=== PATIENT | female | born 1960 | race Caucasian/White ===

== ENCOUNTER 2016-11-23 12:06 | Inpatient (IN) | payer OTHER ==
[2016-11-23] VITALS (37 sets, daily range): BP systolic 73–126; BP diastolic 52–84; PULSE 66–130; RESP 4–27; TEMP 100; Ht 167.6 cm; Wt 141.4 kg
[~2016-11-23] VITALS: Ht 167.6 cm; Wt 141.4 kg
[~2016-11-23 12:06] MED LIST: CA CHLORIDE 10% 10 ML SYRINGE ONE; NA BICARBONATE 8.4% 50 ML SYG ONE
[2016-11-23] MEDS ORDERED: NORepinephrine 8MG/250 ML (PMX 250 ML ONE (12:22)
[2016-11-23] MEDS ORDERED: PROPOFOL 100 ML ONE (12:28)
[2016-11-23] MEDS ORDERED: CEFEPIME 2GM/50 ML (PMX) 50 ML IVPB STA (12:30)
[2016-11-23] MEDS ORDERED: SODIUM CHLORIDE 0.9% 1L BAG IV* STA (12:30)
[2016-11-23] MEDS ORDERED: VANCOMYCIN 1 GM (PMX) 250 ML IVPB ONE (12:30)
[2016-11-23 12:53] LABS: ADD SCAN DIFF NO
[2016-11-23 12:54] LABS: Allen Test ACCEPTAB; Arterial Base Excess 0.1 mmol/L (-3.0-3); Arterial Fraction of Oxyhgb 95.7 % (93.0-99.0); Arterial HCO3 28.8 mmol/L (22.0-26.0); Arterial MetHb 0.6 % (0.0-1.5); Arterial Total Hemglobin 17.5 g/dl (12.0-18.0); MODE VENT - AC
[2016-11-23] MEDS ORDERED: ARIP30TA10 PO (12:56)
[2016-11-23] MEDS ORDERED: ALBU2.5V3 NEB (12:57)
[2016-11-23] MEDS ORDERED: ASPI-664 PO (12:57)
[2016-11-23] MEDS ORDERED: BENZ1TAB7 PO (12:58)
[2016-11-23] MEDS ORDERED: DIVA-16 PO (12:58)
[2016-11-23 12:59] LABS: BASOPHIL # 0.1 10^3/ul (0.0-0.1); BASOPHILS % 0.8 % (0.0-2.0); HEMATOCRIT 50.6 % (37.0-47.0); HEMOGLOBIN 16.1 g/dl (12.0-16.0); LYMPHOCYTES # 2.2 10^3/ul (0.8-2.9); LYMPHOCYTES % 19.1 % (15.0-51.0); MEAN CORPUSCULAR HEMOGLOBIN 32.6 pg (29.0-33.0); MEAN CORPUSCULAR HGB CONC 31.8 g/dl (32.0-37.0); MEAN CORPUSCULAR VOLUME 102.4 fl (82.0-101.0); MEAN PLATELET VOLUME 10.7 fl (7.4-10.4); MONOCYTE # 0.6 10^3/ul (0.3-0.9); NEUTROPHIL # 8.4 10^3/ul (1.6-7.5); NEUTROPHILS % 71.8 % (39.0-77.0); NUCLEATED RED BLOOD CELLS # 1.3 10^3/ul (0.0-0.0); NUCLEATED RED BLOOD CELLS% 11.2 /100WBC (0.0-0.0); PLATELET COUNT 229 10^3/UL (140-415); RED BLOOD COUNT 4.94 10^6/ul (4.20-5.40); RED CELL DISTRIBUTION WIDTH 15.2 % (11.5-14.5); WHITE BLOOD COUNT 11.7 10^3/ul (4.8-10.8)
[2016-11-23] MEDS ORDERED: CRES10 PO (12:59)
[2016-11-23] MEDS ORDERED: PANT40TA3 PO (12:59)
[2016-11-23] MEDS ORDERED: MULTI PO (12:59)
[2016-11-23] MEDS ORDERED: TIOT18CA INHALATION (12:59)
[2016-11-23] MEDS ORDERED: SYMB80120 INHALATION (13:00)
[2016-11-23] MEDS ORDERED: RIVA20TA PO (13:00)
[2016-11-23] MEDS ORDERED: ZOLP5TAB6 PO (13:01)
[2016-11-23] MEDS ORDERED: IPRA3AMP INHALATION (13:01)
[2016-11-23] MEDS ORDERED: PRED50TA PO (13:02)
[2016-11-23] MEDS ORDERED: LORA1TAB PO (13:03)
[2016-11-23 13:08] LABS: ALBUMIN 3.3 g/dl (3.3-4.9); INR 1.17; PARTIAL THROMBOPLASTIN TIME 26.5 Sec (25.0-35.0); POTASSIUM 3.7 mmol/L (3.5-5.1); PT RATIO 1.2
--- NOTE | 2016-11-23 13:09 | RADRPT ---
PROCEDURE: XR Chest. CLINICAL INDICATION: Status post intubation TECHNIQUE: Single portable view of the chest was obtained COMPARISON: None FINDINGS: There is a new endotracheal tube 3.2 cm above the ciara. There is a nasogastric tube extending below the diaphragm. There is mild cardiomegaly with pulmonary vascular congestion. There are bilateral perihilar and lo wer lobe infiltrates. There is no pleural effusion or pneumothorax. RPTAT: AA IMPRESSION: New endotracheal tube in appropriate position. Nasogastric tube extending below the diaphragm. Mild cardiomegaly with pulmonary vascular congestion. .Fran Tam MD, MD Date Time Electronically viewed and signed by .Fran Tam MD, on 11/23/2016 13:09 .S/
[2016-11-23 13:11] LABS: ALBUMIN/GLOBULIN RATIO 1.03; BILIRUBIN,INDIRECT 0.4 mg/dl (0-1.1); BILIRUBIN,TOTAL 0.4 mg/dl (0.2-1.3); CALCIUM 10.2 mg/dl (8.4-10.2); CREATININE 1.1 mg/dl (0.44-1.00); TOTAL PROTEIN 6.5 g/dl (6.1-8.1)
[2016-11-23 13:23] LABS: TROPONIN-I 0.259 ng/ml (0.00-0.12)
[2016-11-23 13:26] LABS: ADD UMIC YES; URINE BILIRUBIN (Dip) 1+ (NEGATIVE); URINE BLOOD (Dip) 1+ (NEGATIVE); URINE COLOR YELLOW (YELLOW); URINE KETONES (Dip) 40 (NEGATIVE); URINE LEUKOCYTE ESTERASE (Dip) NEGATIVE (NEGATIVE); URINE NITRITE (Dip) NEGATIVE (NEGATIVE); URINE TOTAL PROTEIN (Dip) 2+ (NEGATIVE); URINE UROBILINOGEN (Dip) 0.2 E.U./dL (0.1-1.0)
[2016-11-23] MEDS ORDERED: PROPOFOL 100 ML IV STA (13:33)
[2016-11-23] MEDS ORDERED: NORepinephrine 8MG/250 ML (PMX 250 ML IV STA (13:33)
[2016-11-23 13:52] LABS: BACTERIA,URINE MODERATE; ICTOTEST NEGATIVE (NEGATIVE); URINE RBCS 25-50 /HPF (0)
[2016-11-23] MEDS ORDERED: ACETAMINOPHEN 650 MG SUPP PR PRN (14:30)
[2016-11-23] MEDS ORDERED: GLUCAGON 1 MG INJ IM PRN (14:30)
[2016-11-23] MEDS ORDERED: GLUCOSE GEL 15 GRAM TUBE BUCCAL PRN (14:30)
[2016-11-23] MEDS ORDERED: DEXTROSE 50% 50 ML SYRINGE IV PRN ×2 (14:30)
[2016-11-23] MEDS ORDERED: Discontinue Glyburide, Glipizide, and/or Glimepiride prior to starting Insulin XX ONE (14:30)
[2016-11-23] MEDS ORDERED: MAGNESIUM HYDROXIDE 30ML CUP PO PRN (14:30)
[2016-11-23] MEDS ORDERED: IPRATROPIUM (HFA) 12.9 GM INHALER INH PRN (14:30)
[2016-11-23] MEDS ORDERED: morphine 2 MG INJ IV PRN (14:30)
[2016-11-23] MEDS ORDERED: ONDANSETRON 4 MG INJ IV PRN (14:30)
[2016-11-23] MEDS ORDERED: DOCUSATE SODIUM 100 MG CAP PO PRN (14:30)
[2016-11-23] MEDS ORDERED: ALBUTEROL HFA 8 GM INHALER INH PRN (14:30)
[2016-11-23] MEDS ORDERED: MIDAZOLAM (DRIP) 50 mg/50 mL 50 ML IV SCH (14:30)
[2016-11-23] MEDS ORDERED: GLUCOSE GEL 15 GRAM TUBE PO PRN ×2 (14:30)
[2016-11-23] MEDS ORDERED: ASPIRIN 600 MG SUPP PR ONE (14:30)
[2016-11-23] MEDS ORDERED: ACETAMINOPHEN 650MG/20.3ML CUP PO PRN (14:30)
[2016-11-23] MEDS ORDERED: NITROGLYCERIN (SL) 0.4 MG TAB SL PRN (14:30)
[2016-11-23] MEDS ORDERED: HYPOGLYCEMIA PROTOCOL when Glucose is <70 mg/dL or symptomatic <90 mg/dL. XX ONE (14:30)
[2016-11-23] MEDS ORDERED: NORepinephrine 8MG/250 ML (PMX 250 ML IV SCH (14:30)
[2016-11-23] MEDS ORDERED: BISACODYL 10 MG SUPP PR PRN (14:30)
[2016-11-23 14:43] LABS: ACETAMINOPHEN < 10.0 ug/ml (10.0-30.0); D-DIMER 467.98 ng/ml (<460); ETHANOL < 10.0 mg/dl; SALICYLATE < 1.0 mg/dl (5.0-30.0)
--- NOTE | 2016-11-23 15:12 | RADRPT ---
PROCEDURE: CT brain without contrast CLINICAL INDICATION: Sepsis TECHNIQUE: CT of the brain without contrast was performed on a multidetector CT scanner, with multi planar reformats. One or more of the following dose reduction techniques were used: Automated expos ure control, adjustment in mA and / or kV according to patient size, use of iterative reconstructive technique. CTDIvol = 40 mGy; DLP = 634 mGy-cm. COMPARISON: None available FINDINGS: No acute intracranial hemorrhage is identified. No extra-axial fluid collection is seen. There is no mass effect. No midline shift is identified. Ventricles and sulci are within normal limits for size and configuration. There are mild areas of hypodensity in the periventricular - deep white matter, nonspecific but like ly reflecting chronic small vessel ischemic changes. Perdue-white differentiation is preserved. Athe rosclerotic calcifications are seen in the intracranial internal carotid arteries. The sella is par tly empty. Osseous structures are unremarkable. There is partial bilateral mastoid air cell opacification, mil d bilateral maxillary, left frontal, right sphenoid and mild-moderate bilateral ethmoid sinus mucosa l thickening.. IMPRESSION: 1. No evidence of acute intracranial pathology. 2. Mild chronic small vessel ischemic changes. 3. Partly empty sella. 4. Bilateral mastoid and paranasal sinus disease described above. RPTAT: VV .Ministerio Lindsay MD, Date Time Electronically viewed and signed by .Ministerio Lindsay MD, on 11/23/2016 15:08 .O/
[2016-11-23] MEDS: THIAMINE 100 MG in SOD CHLORIDE 0.9% 100 ML IVPB STA ×2 (15:30→17:38)
[2016-11-23] MEDS ORDERED: FENTAnyl (DRIP) 1000 mcg/100mL 100 ML IV SCH (16:00)
[2016-11-23] MEDS ORDERED: PROPOFOL 100 ML IV SCH (16:00)
--- NOTE | 2016-11-23 16:27 | CONS ---
DATE OF ADMISSION: 11/23/2016 DATE OF CONSULTATION: 11/23/2016 TYPE OF CONSULTATION: Pulmonary. Thank you, Dr. Davila, for this consultation. REASON FOR CONSULTATION: Respiratory failure. HISTORY OF PRESENT ILLNESS: This is a 56-year-old lady with multiple medical problems admitted from home, altered mental status, unresponsive, pulseless requiring CPR 15 minutes for PEA and then intu bation, mechanical ventilation. Upon intubation the patient opened eyes and appeared more responsive ; therefore hypothymia protocol was not initiated. Few further details are available. PAST MEDICAL HISTORY: Includes schizoaffective disorder, probable obstructive sleep apnea and probab le COPD, history of coronary artery disease, history of atrial fibrillation. MEDICATIONS: Per chart. ALLERGIES: VICODIN. SOCIAL HISTORY: Alcohol and tobacco history unknown. REVIEW SYSTEMS REVIEW: A 12-point review of systems currently unable to perform. PHYSICAL EXAMINATION: GENERAL: Morbidly obese lady, intubated on mechanical ventilation. Grimaces to painful stimuli. VITAL SIGNS: Temperature 100, pulse is 78, blood pressure 95/40 on vasopressors. NECK: Short. No lymphadenopathy. CARDIAC: S1, S2, 2/6 systolic ejection murmur. CHEST: Diminished air entry bilaterally. ABDOMEN: Obese, soft, nontender, no guarding, no rebound. EXTREMITIES: No cyanosis, clubbing, 1+ edema. NEUROLOGIC: Generalized weakness. LABORATORY DATA: White count 11.7, hemoglobin 16.1, platelets of 229. BUN 16, creatinine 1.1, gluc ose was 361. Lactic acid 10.6, INR 1.17. Initial ABG: pH 7.28, pCO2 of 62, PaO2 of 368 with a bic arbonate of 28. DIAGNOSTIC DATA: Chest x-ray was reviewed, shows congestive cardiac failure. CT of the head shows no acute abnormalities. IMPRESSION AND PLAN: 1. Acute hypoxemic and hypercapnic respiratory failure, possibly secondary to congestive cardiac fa ilure plus or minus pneumonia and/or aspiration. 2. Underlying obstructive sleep apnea. 3. Underlying chronic hypercapnia. 4. Schizoaffective disorder. 5. Incomplete data. The patient will need: 1. Continued mechanical ventilation. 2. Broad-spectrum antibiotics. 3. Cardiology evaluation with echocardiogram. 4. Vasopressor support. 5. Broad-spectrum antibiotics. 6. Deep vein thrombosis and GI prophylaxis. 7. Obtain old data. Dictated By: ROCKY VALDIVIA MD SV/ISMAEL Conf#: [id number] DID#: [id number]
--- NOTE | 2016-11-23 16:43 | RADRPT ---
Echocardiogram Report Patient Name: BHUPINDER LA Gender: Female Date: 1960 Study Date: 23-Nov-2016 [employer]: Charli Samaniego DANAE Location: [facility] Ref. Physician: RENATO MORENO Quality: Technically Difficult Study Procedures: Transthoracic echocardiogram with complete 2D, M-Mode, and doppler examination. Indications: s/p PEA arrest. 2D/M Mode Doppler Measurement Value Normal Ranges Measurement Value Normal Ranges LVIDd 2D 4.8 3.5 - 5.6 cm AV Peak Armond 1.8 m/sec LVIDs 2D 2.9 2.1 - 4.1 cm AV Peak PG 13.0 mmHg FS 2D 39.6 % LVOT Peak Armond 1.0 m/sec LVPWd 2D 1.0 0.6 - 1.1 cm LVOT Peak PG 4.0 mmHg IVSd 2D 1.2 0.6 - 1.1 cm IVS/LVPW 2D 1.1 AoR Diam 2D 3.2 2.0 - 3.7 cm LA/Ao 2D 1 0 - 1 EDV 2D 112.0 cm3 ESV 2D 24.6 cm3 LA Dimen 2D 3.5 2.3 - 4.0 cm Findings Left Ventricle: Overall, normal left ventricular systolic function. Not all segments visualized. Normal left ventricular cavity size. Mild concentric left ventricular hypertrophy. Ejection fraction is visually estimated at 60 %. Abnormal Diastolic Function. Right Ventricle: Normal right ventricular size. Normal right ventricular systolic function. Left Atrium: The left atrium is normal in size. Right Atrium: The right atrium is normal in size. Mitral Valve: Mitral valve is not well visualized. Trace mitral regurgitation. Aortic Valve: No significant aortic stenosis or insufficiency. Aortic valve not well visualized. Tricuspid Valve: Tricuspid valve not well visualized. There is trace tricuspid regurgitation. Pulmonic Valve: Pulmonic valve not well visualized. Pericardium: Normal pericardium with no significant pericardial effusion. Aorta: Normal aortic root. IVC: Dilated inferior vena cava without respiratory collapse, however, patient on ventilator. Conclusions Overall, normal left ventricular systolic function. Not all segments visualized. Normal left ventricular cavity size. Mild concentric left ventricular hypertrophy. Ejection fraction is visually estimated at 60 %. Abnormal Diastolic Function. Normal right ventricular size. Normal right ventricular systolic function. The left atrium is normal in size. The right atrium is normal in size. No significant valvular stenosis or regurgitation seen. Normal pericardium with no significant pericardial effusion. Electronically Signed By: Lito Feldman 23-Nov-2016 16:42:36 -0800 Patient Name: BHUPINDER LA Study Date: 23-Nov-[id number]
--- NOTE | 2016-11-23 16:55 | HP ---
DATE OF ADMISSION: 11/23/2016 PRIMARY CARE PHYSICIAN: Unknown. CHIEF COMPLAINT ON ADMISSION: The patient was found down in cardiac arrest. HISTORY OF PRESENT ILLNESS: This is a 56-year-old female with a history of alcohol abuse, schizoaff ective disorder, asthma, likely severe and probably obstructive sleep apnea with super morbid obesit y, who was brought in to the emergency department by EMS from a local board and care where she was f ound down. The history is obtained from the ER physician as the patient is currently intubated and sedated. Patient apparently was found in PEA arrest by EMS. Resuscitation was started. She was bro ught over to [facility] and was actually a very difficult intubation, according to the emergency department physician. She was also resuscitated with multiple doses of epinephrine a nd CPR. They finally got a pulse after the third dose of epinephrine and started on Levophed for pr essor. A central line was placed and she was started on additional IV antibiotics and placed on mech anical ventilation. Her laboratory data is showing a sodium of 121, a lactate up to 10 and troponin of 0.259. Not much history is available. Some records from outside hospital were obtained. The kana ent does have a history of alcohol use and also coronary artery disease and atrial fibrillation as a n outpatient. She is currently more or less more stable on pressors along with sedation and being o n mechanical ventilation. Pulmonary consult was placed with Dr. Schreiber, cardiology consult with Dr. Feldman. PAST MEDICAL HISTORY: 1. Schizoaffective disorder. 2. Asthma, severe, for which apparently the patient is on chronic prednisone. 3. Coronary artery disease. 4. Atrial fibrillation. 5. Likely obstructive sleep apnea. 6. Alcohol use. ASSESSMENT AND PLAN: This is a 56-year-old female with, according to her records, history of schizo affective disorder, asthma versus COPD, coronary artery disease, atrial fibrillation, possible diabe abdiel mellitus and super morbid obesity who apparently resides at a boarding care, was found down toda y at the boarding care. The history is obtained from the emergency department physician and also fr EMS documentation as the patient is currently intubated and sedated. According to the emergency department physician, the patient was found outside of the boarding care. She was found down unresp onsive. She was found in PEA arrest. Resuscitation efforts were started. She was brought over by EMS to the emergency department. She was a very difficult intubation and they had to perform CPR fo r approximately 15 to 20 minutes before the patient was resuscitated and maintaining a pulse. She w as started on Levophed after the third epinephrine was given. By then, she was intubated by Dr. Ashlee preciado from the emergency department and placed on the ventilator. Left femoral central line was randall ignacia at that time. She was started on Levophed along with propofol afterwards when she started getti ng agitated. LABORATORY DATA: Did show an elevated lactate of 10, sodium of 121 and a slightly elevated troponin . She was given boluses of IV fluids as part of resuscitation, along with IV antibiotics. An OG-tu be was placed, she does have some dark output from the OG tube. She is currently to be switched to Versed drip and is maintaining a pulse and vital signs are more or less stable on the Levophed drip. CAT scan of the brain is within normal limits. Given her previous history of cardiac disease, echoc ardiogram has been ordered along with a cardiology consult with Dr. Feldman. Also, Dr. Schreiber has bee n consulted for the pulmonary and vent management. ALLERGIES: ALLERGY TO 1. ACETAMINOPHEN. 2. HYDROCODONE. 3. SULFAMETHOXAZOLE. 4. TRIMETHOPRIM. PAST MEDICAL HISTORY: Significant for: 1. Asthma versus chronic obstructive pulmonary disease. 2. Likely obstructive sleep apnea. 3. Super morbid obesity. 4. Coronary artery disease. 5. Atrial fibrillation. 6. Schizoaffective disorder. PAST SURGICAL HISTORY: Unknown. REVIEW OF SYSTEMS: Unable to obtain. SOCIAL HISTORY: [facility] She is legally blind. Apparently she uses a walker but needs to be escorted. No reported tobacco, alcohol or illicit drug use. OUTPATIENT MEDICATIONS: 1. Albuterol nebulizer every 6 hours as needed for wheezing or shortness of breath. 2. Duonebs every 4 hours as needed for COPD. 3. Spiriva 18 mcg inhaled daily. 4. Xarelto 20 mg p.o. with dinner. 5. Crestor 10 mg p.o. at bedtime. 6. Abilify 30 mg p.o. daily. 7. Aspirin 81 mg p.o. daily. 8. Benztropine 1 mg p.o. b.i.d. 9. Divalproex sodium 1500 mg p.o. at bedtime. 10. Lorazepam 1 mg p.o. every 4 hours p.r.n. anxiety. 11. Ambien 5 mg p.o. at bedtime. 12. Symbicort 80/4.5 two puffs inhaled b.i.d. 13. Protonix 40 mg p.o. daily. 14. Prednisone 50 mg p.o. daily. 15. Multivitamin 1 tab p.o. daily. PHYSICAL EXAMINATION: VITAL SIGNS: Temperature of 100, T-max was 101, heart rate of 78, sinus rhythm, respiratory rate of 20, blood pressure 102/71, the patient is saturating 100% on the ventilator currently with a respir atory rate of 19 to 20%. The vent settings are a tidal volume of 500, PEEP of 5, FiO2 of 100% and re spiratory rate of 20. GENERAL: She is sedated and intubated currently, super morbidly obese and seems to be comfortable, minimally responsive. HEENT: The patient is noted to have a short neck. She has an ET tube in place along with an OG tub e with coffee ground output. Additional exam is fairly limited. LUNGS: Decreased breath sounds bilaterally, very difficult exam, however. ABDOMEN: Slightly distended, mostly obese, decreased bowel sounds. EXTREMITIES: No edema, clubbing or cyanosis, but it is noted that the sole of her feet are cracked and dirty. NEUROLOGIC: She is sedated and intubated. LABORATORY DATA: White blood cell count is 11.7, hemoglobin 16.1, hematocrit 50.1, MCV of 102.4, pl atelet count of 229. Chemistry with a sodium of 121, potassium 3.7, chloride of 89, bicarbonate of 27, BUN 16, creatinine 1.10, glucose of 361. Lactic acid 10.6, total bilirubin 0.4, AST 46, ALT 33, alkaline phosphatase of 48, troponin 0.259, total protein 6.5, albumin 3.3, lipase 56. TSH 3.040, a free T4 of 0.72, INR is 1.17. PT of 15.0. D-dimer 467 and 98. Urinalysis with moderate bacteria , negative nitrites, negative leukocyte esterase. Tox screen is negative. Post resuscitation patient is now in sinus rhythm with premature supraventricular complexes, on arri willy she was in PEA cardiac arrest. RADIOLOGICAL DATA: 1. Chest x-ray post-intubation shows an ET tube in appropriate position, OG tube in place, mild car diomegaly with pulmonary vascular congestion. 2. CAT scan of the brain without contrast showing no evidence of acute intracranial pathology, mild chronic small vessel ischemic changes. Partly empty sella bilateral mastoid and paranasal sinus di sease as described. ASSESSMENT AND PLAN: This is a 56-year-old female with: 1. Pulseless electrical activity cardiac arrest, likely secondary to respiratory failure. It is un clear at this time. The patient also has a cardiac history. Therefore, she will have her cardiac e nzymes trended, 2-D echocardiogram has been ordered. Cardiology consult with Dr. Feldman. Pulmonary consult with Dr. Saldivar. The patient is on mechanical ventilation currently. D-dimer is slightly elevated. I will order Dopplers of the lower extremity to rule out a DVT. Per records, the patien t was on Xarelto as an outpatient, given her history of atrial fibrillation; however, she seems to b e in sinus rhythm since resuscitation. Prognosis is guarded. 2. Acute respiratory failure, unclear primary etiology of it. She has a history of COPD versus asth ma and likely obstructive sleep apnea. Currently, she is on mechanical vent support. We will follo w up pulmonary recommendations, likely we are going to have to put her on steroids, since she is chr onically on it as an outpatient. Doppler of the lower extremity and further evaluation per pulmonary . 3. Super morbid obesity. 4. Schizoaffective disorder. For now she is nonresponsive. She is going to be on a Versed drip fo r sedation. Would plan to resume her psychiatric medications once she is off sedation. 4. Coffee ground output from the NG tube, possible upper gastrointestinal bleed. Continue proton p ump inhibitors. Will increase to b.i.d. 5. Acute kidney injury in setting of PEA cardiac arrest. We will monitor her urine output closely. She was already given IV fluids for resuscitation, based on her ejection fraction we may increase or decrease the amount of IV which she is getting better. Monitor renal function for now. 6. Likely aspiration pneumonia. We will continue antibiotics, Zosyn for now. 7. Prophylaxis. Heparin subacute for deep venous thrombosis prophylaxis, unless the patient starte d having upper GI bleeding and Pepcid b.i.d. for now. DISPOSITION: The patient has been admitted to the intensive care unit with pulmonary and cardiology to follow. Her prognosis is guarded. Dictated By: JERRI MANCILLA/ISMAEL Conf#: [id number] DID#: [id number]
[2016-11-23] MEDS: PIPER-TAZO 3.375 GM IV (PMX) 100 ML IVPB SCH ×2 (17:20→20:47)
[2016-11-23] MEDS: SOD CHLORIDE 0.9% 1,000 ML IV SCH (17:20)
[2016-11-23] MEDS: MIDAZOLAM (DRIP) 50 mg/50 mL 50 ML IV SCH ×2 (17:25→23:35)
[2016-11-23] MEDS: PANTOPRAZOLE 40 MG INJ IV SCH (17:32)
[2016-11-23] MEDS: INSULIN ASPART [NOVOLOG] 3 ML PEN SC SCH ×2 (17:35→22:28)
[2016-11-23] MEDS: ALBUTEROL HFA 8 GM INHALER INH SCH ×2 (18:05→21:50)
[2016-11-23] MEDS: IPRATROPIUM (HFA) 12.9 GM INHALER INH SCH ×2 (18:06→21:50)
[2016-11-23] MEDS: NORepinephrine 8MG/250 ML (PMX 250 ML IV SCH ×2 (18:57→23:32)
[2016-11-23 19:45] LABS: CK-MB 2.81 ng/ml (0.0-2.4); TROPONIN-I 0.272 ng/ml (0.00-0.12)
--- NOTE | 2016-11-23 20:50 | ERA ---
ER Documentation Chief Complaint Date/Time DATE: 11/23/16 TIME: 20:32 Chief Complaint HPI This is a 56-year-old female with a history of alcohol abuse, schizoaffective disorder, asthma, obstructive sleep apnea with morbid obesity, who was brought in to the emergency department by EMS from a local [facility]. EMS indicated that they received a call from the [facility] as the patient was lying outside on the sidewalk in severe respiratory distress. When EMS arrived they indicated they stated that the patient was diaphoretic, experienced and agonal respirations and unresponsive. The patient was in pulseless electrical activity and they immediately began CPR. They were unable to establish IV access therefore no medications were given. No further history is available. All further history with respect to the patient's past medical history was obtained from previous medical records and a medication list that was given to EMS from the [facility]. EMS stated there was no signs of trauma or drug paraphernalia. ROS All systems reviewed and are negative except as per history of present illness. Medications Home Meds Reported Medications Lorazepam* (Lorazepam*) 1 Mg Tablet, 1 MG PO Q4 Y for ANXIETY, #60 TAB 11/23/16 Prednisone* (Prednisone*) 50 Mg Tablet, 50 MG PO DAILY, TAB 11/23/16 Zolpidem Tartrate* (Zolpidem Tartrate*) 5 Mg Tablet, 5 MG PO QHS Y for INSOMNIA , #30 TAB 11/23/16 Ipratropium-Albuterol (Ipratropium-Albuterol) 0.5-3 Mg/3 Ml Ampul.neb, 3 ML INHALATION Q4 Y for COPD, #30 VIAL 11/23/16 Rivaroxaban* (Xarelto*) 20 Mg Tablet, 20 MG PO WITH DINNER, TAB 11/23/16 Budesonide-Formoterol Fumarate* (Symbicort*) 80-4.5 Inha, 2 PUFFS INHALATION BID , #1 EACH 11/23/16 Tiotropium [place]* (Spiriva*) 18 Mcg Cap.w.dev, 1 CAP INHALATION DAILY, #30 CAP 11/23/16 Rosuvastatin Calcium* (Crestor*) 10 Mg Tablet, 10 MG PO QHS, #30 TAB 11/23/16 Pantoprazole* (Protonix*) 40 Mg Tablet.dr, 40 MG PO DAILY, TAB 11/23/16 Multivitamins* (Theragran*) 1 Tab Tab, 1 TAB PO DAILY, TAB 11/23/16 Divalproex Sodium* (Divalproex Sodium*) 500 Mg Tablet.dr, 1500 MG PO QHS, #120 TAB 11/23/16 Benztropine Mesylate* (Benztropine Mesylate*) 1 Mg Tablet, 1 MG PO BID, TAB 11/23/16 Aspirin (Low Dose Aspirin) 81 Mg Tablet.dr, 81 MG PO DAILY, #30 TAB 11/23/16 Albuterol Sulfate* (Albuterol Sulfate* Neb) 0.083%-3 Ml Neb, 2.5 MG NEB Q6 Y for WHEEZING AND SOB, #30 VIAL 11/23/16 Aripiprazole* (Abilify*) 30 Mg Tablet, 30 MG PO DAILY, #30 TAB 11/23/16 Allergies Allergies: Coded Allergies: acetaminophen (Verified Allergy, Unknown, 11/23/16) hydrocodone (Verified Allergy, Unknown, 11/23/16) sulfamethoxazole (Verified Allergy, Unknown, 11/23/16) trimethoprim (Verified Allergy, Unknown, 11/23/16) PMhx/Soc Medical and Surgical Hx: Unable to obtain Hx Psychiatric Problems: Yes (ON PSYCH MEDS PER E.R RN REPORT) Hx Alcohol Use: Yes (ETOH IN THE PAST PER MD. ) Smoking Status: Unknown if ever smoked Physical Exam Vitals Vital Signs Date Time Temp Pulse Resp B/P Pulse Ox O2 Delivery O2 Flow Rate FiO2 11/23/16 13:30 97 20 66/52 100 Mechanical Ventilator 11/23/16 13:00 116 20 100 11/23/16 12:55 101.0 120 20 99/59 100 Mechanical Ventilator 11/23/16 12:40 124 20 158/78 99 Mechanical Ventilator 11/23/16 12:40 Bag Valve Mask 11/23/16 12:34 125 20 136/75 100 Mechanical Ventilator 11/23/16 12:22 174 20 52/38 100 Mechanical Ventilator 11/23/16 12:10 136 20 100 100 11/23/16 12:06 98.1 0 20 52/38 100 Physical Exam Constitutional:Well-developed. Disheveled. In severe respiratory distress. HEENT:Normocephalic. Atraumatic.Pupils were equal round reactive to light. No tonsillar exudates. No blood present within the oropharynx and no gastric contents within the oropharynx. No angioedema. Macroglossia Neck: No nuchal rigidity. No lymphadenopathy. No posterior cervical spine tenderness or step-offs. Respiratory: No spontaneous ventilatory effort Cardiovascular: Regular rate regular rhythm.No murmurs. No rubs were appreciated.S1, S2 normal. Distal pulses were not palpable due to morbid obesity however on Doppler dorsalis pedis and posterior tibialis were present GI: Abdomen was soft. Nontender. Non Distended. No pulsatile abdominal masses or bruits. No rebound. No guarding. Bowel sounds were present and normal. Muscle skeletal: Patient had no movement of the upper or lower extremities bilaterally. Skin: Cool to the touch. Cyanotic. No petechia, no purpura. No lesions on the palms or the soles of the feet. No maculopapular rash. Macula on an erythematous base present underneath the left breast. NEURO: Patient was unresponsive. No gag reflex. GCS 3 Result Diagram: 11/23/16 1230 11/23/16 1230 Results 24 hrs Laboratory Tests Test 11/23/16 12:13 11/23/16 12:30 11/23/16 12:40 11/23/16 13:30 Bedside Glucose 300mg/dL Activated Partial Thromboplast Time 26.5Sec Alanine Aminotransferase (ALT/SGPT) 33IU/L Albumin 3.3g/dl Albumin/Globulin Ratio 1.03 Alkaline Phosphatase 48IU/L Amylase Level 50U/L Anion Gap 24 Aspartate Amino Transf (AST/SGOT) 46IU/L Basophils # 0.110^3/ul Basophils % 0.8% Blood Urea Nitrogen 16mg/dl Calcium Level 10.2mg/dl Carbon Dioxide Level 27mmol/L Chloride Level 89mmol/L Creatinine 1.10mg/dl Direct Bilirubin 0.00mg/dl Eosinophils # 0.010^3/ul Eosinophils % 0.0% Globulin 3.20g/dl Glucose Level 361mg/dl Hematocrit 50.6% Hemoglobin 16.1g/dl INR International Normalized Ratio 1.17 Indirect Bilirubin 0.4mg/dl Lactic Acid Level 10.6mmol/L Lipase 56U/L Lymphocytes # 2.210^3/ul Lymphocytes % 19.1% Mean Corpuscular Hemoglobin 32.6pg Mean Corpuscular Hemoglobin Concent 31.8g/dl Mean Corpuscular Volume 102.4fl Mean Platelet Volume 10.7fl Monocytes # 0.610^3/ul Monocytes % 5.0% Neutrophils # 8.410^3/ul Neutrophils % 71.8% Nucleated Red Blood Cells # 1.310^3/ul Nucleated Red Blood Cells % 11.2/100WBC Platelet Count 08213^3/UL Potassium Level 3.7mmol/L Prothrombin Time 15.0Sec Prothrombin Time Ratio 1.2 Red Blood Count 4.9410^6/ul Red Cell Distribution Width 15.2% Sodium Level 136mmol/L Total Bilirubin 0.4mg/dl Total Protein 6.5g/dl Troponin I 0.259ng/ml Urine Amorphous Urates MODERATE Urine Bacteria MODERATE Urine Bilirubin 1+ Urine Clarity SLIGHTLY CLOUDY Urine Color YELLOW Urine Epithelial Cells FEW Urine Glucose 0.5%% Urine Hemoglobin 1+ Urine Ictotest NEGATIVE Urine Ketones 40 Urine Leukocyte Esterase NEGATIVE Urine Microscopic RBC 25-50/HPF Urine Microscopic WBC 5-10/HPF Urine Nitrite NEGATIVE Urine Specific [place] 1.025 Urine Total Protein 2+ Urine Urobilinogen 0.2 E.U./dL Urine Yeast RARE Urine pH 6.0 White Blood Count 11.710^3/ul Arterial Blood HCO3 28.8mmol/L Arterial Blood Base Excess 0.1mmol/L Arterial Blood Oxygen Saturation 99.3mmHG Yakov Test ACCEPTAB Arterial Blood Gas Puncture Site Right Radial Arterial Blood Carboxyhemoglobin 3.0% Arterial Blood Date Drawn 11/23/2016 12:45:38 PM Arterial Blood Methemoglobin 0.6% Arterial Blood pCO2 (Temp correct) 62.3mmhg Arterial Blood pH (Temp corrected) 7.283 Arterial Blood pO2 (Temp corrected) 368.7mmHG Blood Gas A-a O2 Differential 282.0mmHg Blood Gas Actual Respiration Rate 20 Blood Gas Critical Value Read Back DR. Ryder TORRES Blood Gas Inspiratory Pressure 40.0 Blood Gas Low PEEP Setting 5.0cmH2O Blood Gas Modality VENT - AC Blood Gas Notified Time 11/23/2016 12:53:56 PM Blood Gas Notified Whom CHRIS MCFARLANE Blood Gas Respiration Rate 16.0 Blood Gas Specimen Source Blood arterial Blood Gas Temperature 37.0C Blood Gas Tidal Volume 500.0mL FiO2 100.0% Oxyhemoglobin Percent 95.7% Total Hemoglobin 17.5g/dl Acetaminophen Level < 10.0ug/ml D-Dimer 467.98ng/ml D-Dimer Comment Ethyl Alcohol Level < 10.0mg/dl Free Thyroxine 0.72ng/dl Salicylates Level < 1.0mg/dl Thyroid Stimulating Hormone (TSH) 3.040MIU/L Current Medications Medications (Trade) Dose Ordered Sig/Bryson Route PRN Reason Start Time Stop Time Status Last Admin Dose Admin Propofol (Diprivan) 100 ml @ ud STK-MED ONCE .ROUTE 11/23/16 12:28 11/23/16 12:29 DC Sodium Chloride 3100 ml 3,100 ml BOLUS OVER 2 HOURS STAT IV* 11/23/16 12:30 11/23/16 12:33 DC 11/23/16 13:42 Cefepime HCl 50 ml @ 100 mls/hr ONCE STAT IVPB 11/23/16 12:30 11/23/16 12:59 DC 11/23/16 13:46 Vancomycin HCl 250 ml @ 125 mls/hr ONCE ONCE IVPB 11/23/16 12:30 11/23/16 14:29 DC 11/23/16 14:41 Norepinephrine 250 ml @ 7.5 mls/hr ONCE STAT IV 11/23/16 13:33 11/23/16 15:20 DC 11/23/16 13:41 Propofol 100 ml @ 3.3 mls/hr ONCE STAT IV 11/23/16 13:33 11/23/16 15:20 DC 11/23/16 13:40 Norepinephrine (Levophed) 250 ml @ ud STK-MED ONCE .ROUTE 11/23/16 12:22 11/23/16 16:33 DC Procedures/MDM The patient presented to the emergency department with an acute and persistent change in their mental status. The differential diagnosis is diverse however reversible causes such as hypoglycemia, opiate overdose, thiamine deficiency were immediately considered. The patient was placed on a personnel monitor, continuous pulse oximetry and IV access was established. The patients airway was not secure therefore hypoxic events such as anemia, shock, or severe pulmonary disease were all considered as etiologies in this patients presentation. Finger stick for rapid glucose determined to be elevated at 300 and the patient was not hypothermic or hyperthermic. ACLS protocol was obtained. The patient arrived into the emergency department with pulseless electrical activity. The patient had no gag reflex and therefore her airway was secured with endotracheal intubation performed by myself. The patient did not require RSI as again she had no gag reflex. A 7.50 endotracheal tube is seen in past going to the courts by myself. The patient is a very anterior airway And was morbidly obese. The tube was secured to the lip line of 23 cm and confirmed to be in good placement with equal and symmetrical breath sounds are bilaterally, condensation seen with the tube and chest radiograph and indicated good placement. CPR was initiated for roughly 15 minutes receiving epinephrine, bicarb and calcium chloride. The patient return of spontaneous circulation. The patient had now become more responsive, opening her eyes and attempted to be uncomfortable secondary to the endotracheal tube. Therefore the patient was started on a propofol drip for sedation and did not meet criteria for hypothermic protocol. The patient was critically ill and required central venous access. The patient was unable to consent due to her respiratory distress and after was prepped and draped in a sterile fashion. Time out performed and the left femoral vein was cannulated using the Seldinger technique after anesthesia administered with 1% lidocaine locally. A triple lumen catheter used. The guidewire was easily thread into the vessel. The guidewire was retrieved, removed and disposed of. All three ports kristine back venous blood and flushed easily. The line was secured in place with 2 simple interrupted sutures and a biostat was applied over the area in inoculation. The patient tolerated the procedure well with no complications. ED Ultrasound: Central line placed by me using concurrent ultrasound guidance. Real time image archived in the medical record confirms vascular anatomy. Patient's infectious symptoms have not stabilized and the patient is at risk of rapid decompensation. The patient will be admitted for careful hydration, antibiotic therapy, and infectious source control. Severe Sepsis Assessment: Infectious Source: Aspiration pneumonia End organ damage indicated by: Lactate > 2.0 mmol/L Hypotension( SBP < 90 or >40 mmHG drop or MAP < 65) Acute Resp Failure (sat < 92% w/o oxygen) Severe Sepsis Managment: Blood Cultures X 2 before broad spectrum antibiotics initiated within 3 hours of recognition. 30 ml/kg NS bolus Completed Initial Lactate: 10 Repeat Lactate pending Septic Shock Assessment (1 hour post 30 ml/kg fluid bolus): Hypotension (SBP < 90 or 40 mmHg drop, MAP < 65): Lactic acid > 4.0 Perfusion Reassessment for Septic Shock: Temp 98.1, Pulse 125, RR 20, BP 158/78 Heart Exam: Tachycardic Lung Exam: No Crackles Capillary Refill: Delayed Peripheral Pulses: Radially present Skin: Normal Hypotensive Treatment (not required for isolated lactic acid elevation): Comfort Care: No Central LIne: Left femoral line Vasopressor started: norepinephrine I considered further perfusion assessment with CVP measurement, SCVO2, bedside ultrasound volume assessment, passive leg raise, trial of further fluid bolus. And preceded with vasopressors The patient developed a low-grade fever while in the emergency department awaiting a bed in the intensive care unit. Given that the patient has a documented allergy to acetaminophen cooling measures were obtained. The patient 's low-grade fever of 100.9 had resolved. The patient also had an elevated troponin which could be due to the severe sepsis. Rectal aspirin had been given to the patient. The patient also had a urinary tract infection. The patient was given a banana bag serum ethanol was undetected and I could not rule out delirium tremors. The patient will be admitted in serious condition in the care of Dr. Davila to the intensive care unit with anticipated stay of greater than 2 midnights. Critical Care: Time: 80 minutes Treatments/Evaluations: Close monitoring and treatment of unstable vital signs, cardiorespiratory, and neurologic status, while maintaining tight balance of fluid, respiratory, and cardiac interventions. Time does not include performing any of the above billable procedures. Departure Diagnosis: Primary Impression: Respiratory arrest Additional Impressions: Signs of return of spontaneous circulation Septic shock Acute respiratory acidosis Elevated troponin Condition: Serious DAMIEN TORRES Nov 23, 2016 20:43
[2016-11-23] MEDS: ARTIFICIAL TEARS 15 ML OPH BOTH EYES SCH (21:00)
[2016-11-23] MEDS ORDERED: HEPARIN 5,000 UNIT/0.5 ML SYG SC SCH (22:00)
[2016-11-24] VITALS (98 sets, daily range): BP systolic 67–135; BP diastolic 37–96; PULSE 69–135; RESP 18–30
[2016-11-24 01:03] LABS: CK-MB 2.42 ng/ml (0.0-2.4)
[2016-11-24 01:22] LABS: BARBITURATES Negative (NEGATIVE); BENZODIAZEPINES Positive (NEGATIVE); CANNABINOIDS Negative (NEGATIVE); COCAINE Negative (NEGATIVE); OPIATES Negative (NEGATIVE)
[2016-11-24 01:22] LABS: TROPONIN-I 0.158 ng/ml (0.00-0.12)
[2016-11-24] MEDS: INSULIN ASPART [NOVOLOG] 3 ML PEN SC SCH ×6 (01:25→20:06)
[2016-11-24] MEDS: ALBUTEROL HFA 8 GM INHALER INH SCH ×6 (02:02→22:07)
[2016-11-24] MEDS: IPRATROPIUM (HFA) 12.9 GM INHALER INH SCH ×6 (02:02→22:06)
[2016-11-24] MEDS: NORepinephrine 8MG/250 ML (PMX 250 ML IV SCH (03:54)
[2016-11-24 05:01] LABS: ADD SCAN DIFF NO
[2016-11-24 05:17] LABS: BASOPHIL # 0.1 10^3/ul (0.0-0.1); BASOPHILS % 0.4 % (0.0-2.0); HEMATOCRIT 51.4 % (37.0-47.0); HEMOGLOBIN 16.4 g/dl (12.0-16.0); MEAN CORPUSCULAR HEMOGLOBIN 31.5 pg (29.0-33.0); MEAN CORPUSCULAR HGB CONC 31.9 g/dl (32.0-37.0); MEAN CORPUSCULAR VOLUME 98.8 fl (82.0-101.0); MEAN PLATELET VOLUME 10.6 fl (7.4-10.4); MONOCYTE # 0.9 10^3/ul (0.3-0.9); MONOCYTES % 5.6 % (0.0-11.0); NEUTROPHIL # 12.3 10^3/ul (1.6-7.5); NEUTROPHILS % 79.9 % (39.0-77.0); NUCLEATED RED BLOOD CELLS # 0.5 10^3/ul (0.0-0.0); NUCLEATED RED BLOOD CELLS% 3.4 /100WBC (0.0-0.0); PLATELET COUNT 234 10^3/UL (140-415); RED CELL DISTRIBUTION WIDTH 15.1 % (11.5-14.5); WHITE BLOOD COUNT 15.3 10^3/ul (4.8-10.8)
[2016-11-24] MEDS: SOD CHLORIDE 0.9% 1,000 ML IV SCH ×3 (05:29→19:32)
[2016-11-24] MEDS: PIPER-TAZO 3.375 GM IV (PMX) 100 ML IVPB SCH ×3 (05:29→21:30)
[2016-11-24] MEDS: PANTOPRAZOLE 40 MG INJ IV SCH ×2 (05:29→17:52)
[2016-11-24 05:38] LABS: ALBUMIN 3.2 g/dl (3.3-4.9)
[2016-11-24 05:39] LABS: POTASSIUM 3.4 mmol/L (3.5-5.1)
[2016-11-24 05:41] LABS: ALBUMIN/GLOBULIN RATIO 1.14; BILIRUBIN,INDIRECT 0.5 mg/dl (0-1.1); BILIRUBIN,TOTAL 0.5 mg/dl (0.2-1.3); CREATININE 0.97 mg/dl (0.44-1.00)
[2016-11-24] MEDS ORDERED: PANTOPRAZOLE 40 MG INJ IV SCH (06:00)
[2016-11-24] MEDS ORDERED: PHENYLephrine 20MG IN 250 ML 250 ML IV PRN (07:00)
[2016-11-24 07:12] LABS: MAGNESIUM 1.6 mg/dl (1.7-2.5); PHOSPHORUS 3.6 mg/dl (2.5-4.9)
[2016-11-24] MEDS ORDERED: SOD CHLORIDE 0.9% 1,000 ML IV ONE (08:00)
[2016-11-24] MEDS ORDERED: MAGNESIUM SULFATE 2 GM/50 ML 50 ML IVPB ONE (08:00)
[2016-11-24] MEDS ORDERED: VANCOMYCIN IV PER PHARMACY XX SCH (08:00)
--- NOTE | 2016-11-24 08:14 | CONS ---
Date/Time of Note Date/Time of Note DATE: 11/24/16 TIME: 08:07 Assessment/Plan Assessment/Plan Chief Complaint/Hosp Course 1) PEA 2) VDRF 3) Supermorbid obesity 4) Ectopy 5) h/o arrhyhtmia 6) Troponinelevation likely secondary to PEA 7) Preserved LV function 8) Obesity/Hypoventilation syndrome Problems: Additional Assessment/Plan 1) Primary ACS less likely 2) monitor rhythm 3) Wean pressors 4) Vent mgt Consultation Date/Type/Reason Admit Date/Time Nov 23, 2016 at 14:03 Date of Consultation: Nov 24, 2016 Type of Consultation: cv Reason for Consultation PEA Referring Provider: JERRI MORENO Hx of Present Illness admitted in respiratory failure after being found down with PEA. Patient intubated, ventilated and sedated in the ICU Subjective hx not possible: pt non-verbal, pt critical status Past Medical History Medical History: hypertension, other (arrhythmia; asthma; psych do; supermorbid obesity) Family History Significant Family History: hypertension Social History Smoking Status: Unknown if ever smoked Exam/Review of Systems Vital Signs Vitals Vital Signs Date Time Temp Pulse Resp B/P Pulse Ox O2 Delivery O2 Flow Rate FiO2 11/24/16 07:00 119 23 127/64 99 Mechanical Ventilator 11/24/16 05:15 50 11/24/16 01:00 98.8 Intake and Output 11/23/16 11/23/16 11/24/16 15:00 23:00 07:00 Intake Total 1223.70 ml 1390.00 ml Output Total 385 ml 185 ml Balance 838.70 ml 1205.00 ml Exam Constitutional: other (intubated) Head: atraumatic, normocephalic ENMT: intubated Neck: jvd Respiratory: diminished breath sounds Cardiovascular: irregular rhythm Gastrointestinal: other (obese) Musculoskeletal: swelling Extremities: normal pulses Results Result Diagram: 11/24/16 0430 11/24/16 0430 Results 24 hrs Laboratory Tests Test 11/23/16 12:13 11/23/16 12:30 11/23/16 12:40 11/23/16 13:30 Bedside Glucose 300 H Activated Partial Thromboplast Time 26.5 Alanine Aminotransferase (ALT/SGPT) 33 Albumin 3.3 Albumin/Globulin Ratio 1.03 Alkaline Phosphatase 48 Amylase Level 50 Anion Gap 24 H Aspartate Amino Transf (AST/SGOT) 46 Basophils # 0.1 Basophils % 0.8 Blood Urea Nitrogen 16 Calcium Level 10.2 Carbon Dioxide Level 27 Chloride Level 89 L Creatinine 1.10 H Direct Bilirubin 0.00 Eosinophils # 0.0 Eosinophils % 0.0 Globulin 3.20 Glucose Level 361 H Hematocrit 50.6 H Hemoglobin 16.1 H INR International Normalized Ratio 1.17 Indirect Bilirubin 0.4 Lactic Acid Level 10.6 *H Lipase 56 Lymphocytes # 2.2 Lymphocytes % 19.1 Mean Corpuscular Hemoglobin 32.6 Mean Corpuscular Hemoglobin Concent 31.8 L Mean Corpuscular Volume 102.4 H Mean Platelet Volume 10.7 H Monocytes # 0.6 Monocytes % 5.0 Neutrophils # 8.4 H Neutrophils % 71.8 Nucleated Red Blood Cells # 1.3 H Nucleated Red Blood Cells % 11.2 H Platelet Count 229 Potassium Level 3.7 Prothrombin Time 15.0 H Prothrombin Time Ratio 1.2 Red Blood Count 4.94 Red Cell Distribution Width 15.2 H Sodium Level 136 Total Bilirubin 0.4 Total Protein 6.5 Troponin I 0.259 *H Urine Amorphous Urates MODERATE Urine Bacteria MODERATE Urine Bilirubin 1+ H Urine Clarity SLIGHTLY CLOUDY Urine Color YELLOW Urine Epithelial Cells FEW Urine Glucose 0.5% H Urine Hemoglobin 1+ H Urine Ictotest NEGATIVE Urine Ketones 40 Urine Leukocyte Esterase NEGATIVE Urine Microscopic RBC 25-50 Urine Microscopic WBC 5-10 Urine Nitrite NEGATIVE Urine Specific [place] 1.025 Urine Total Protein 2+ H Urine Urobilinogen 0.2 E.U./dL Urine Yeast RARE Urine pH 6.0 White Blood Count 11.7 H Arterial Blood HCO3 28.8 H Arterial Blood Base Excess 0.1 Arterial Blood Oxygen Saturation 99.3 H Yakov Test ACCEPTAB Arterial Blood Gas Puncture Site Right Radial Arterial Blood Carboxyhemoglobin 3.0 Arterial Blood Date Drawn 11/23/2016 12:45:38 PM Arterial Blood Methemoglobin 0.6 Arterial Blood pCO2 (Temp correct) 62.3 H Arterial Blood pH (Temp corrected) 7.283 *L Arterial Blood pO2 (Temp corrected) 368.7 H Blood Gas A-a O2 Differential 282.0 H Blood Gas Actual Respiration Rate 20 Blood Gas Critical Value Read Back DR. Ryder TORRES Blood Gas Inspiratory Pressure 40.0 Blood Gas Low PEEP Setting 5.0 Blood Gas Modality VENT - AC Blood Gas Notified Time 11/23/2016 12:53:56 PM Blood Gas Notified Whom AfsanehJUNE RT Blood Gas Respiration Rate 16.0 Blood Gas Specimen Source Blood arterial Blood Gas Temperature 37.0 Blood Gas Tidal Volume 500.0 FiO2 100.0 Oxyhemoglobin Percent 95.7 Total Hemoglobin 17.5 Acetaminophen Level < 10.0 L D-Dimer 467.98 H D-Dimer Comment Ethyl Alcohol Level < 10.0 Free Thyroxine 0.72 Salicylates Level < 1.0 L Thyroid Stimulating Hormone (TSH) 3.040 Test 11/23/16 16:00 11/23/16 17:19 11/23/16 18:15 11/23/16 19:10 Lactic Acid Level 2.2 1.9 Bedside Glucose 313 H Creatine Kinase 113 Creatine Kinase Index 2.5 Creatinine Kinase MB (Mass) 2.81 H Troponin I 0.272 *H Test 11/23/16 20:31 11/23/16 23:30 11/24/16 00:32 11/24/16 01:23 Bedside Glucose 337 H 233 H Urine Amphetamines Screen Negative Urine Barbiturates Negative Urine Benzodiazepines Screen Positive Urine Cannabinoids Negative Urine Cocaine Screen Negative Urine Opiates Screen Negative Creatine Kinase 126 Creatine Kinase Index 1.9 Creatinine Kinase MB (Mass) 2.42 H Troponin I 0.158 *H Test 11/24/16 04:30 11/24/16 05:28 Alanine Aminotransferase (ALT/SGPT) 41 Albumin 3.2 L Albumin/Globulin Ratio 1.14 Alkaline Phosphatase 51 Anion Gap 18 H Aspartate Amino Transf (AST/SGOT) 42 Basophils # 0.1 Basophils % 0.4 Blood Urea Nitrogen 22 H Calcium Level 9.0 Carbon Dioxide Level 30 Chloride Level 98 Creatinine 0.97 Direct Bilirubin 0.00 Eosinophils # 0.0 Eosinophils % 0.0 Globulin 2.80 Glucose Level 198 # Hematocrit 51.4 H Hemoglobin 16.4 H Indirect Bilirubin 0.5 Lymphocytes # 2.0 Lymphocytes % 13.0 L Magnesium Level 1.6 L Mean Corpuscular Hemoglobin 31.5 Mean Corpuscular Hemoglobin Concent 31.9 L Mean Corpuscular Volume 98.8 Mean Platelet Volume 10.6 H Monocytes # 0.9 Monocytes % 5.6 Neutrophils # 12.3 H Neutrophils % 79.9 H Nucleated Red Blood Cells # 0.5 H Nucleated Red Blood Cells % 3.4 H Phosphorus Level 3.6 Platelet Count 234 Potassium Level 3.4 L Red Blood Count 5.20 Red Cell Distribution Width 15.1 H Sodium Level 143 Total Bilirubin 0.5 Total Protein 6.0 L White Blood Count 15.3 #H Bedside Glucose 210 Medications Medications Current Medications Ondansetron HCl (Zofran Inj) 4 mg Q6H PRN IV NAUSEA AND/OR VOMITING; Start 11/23 at 14:30 Nitroglycerin (Nitroglycerin (Sl Tab) 0.4 Mg) 1 tab Q5M PRN SL CHEST PAIN; Start 11/23/16 at 14:30 Acetaminophen (Tylenol Liquid) 650 mg Q6H PRN PO PAIN LEVEL 1-3 OR FEVER; Start 11/23/16 at 14:30 Acetaminophen (Tylenol Supp) 650 mg Q4H PRN DC PAIN LEVEL 1-3 OR FEVER; Start 11/23/16 at 14:30 Morphine Sulfate (morphine) 2 mg Q4H PRN IV PAIN LEVEL 7-10; Start 11/23/16 at 14:30 Docusate Sodium (Colace) 100 mg Q12H PRN PO CONSTIPATION; Start 11/23/16 at 14: 30 Magnesium Hydroxide (Milk Of Mag) 30 ml DAILY PRN PO CONSTIPATION; Start at 14:30 Bisacodyl (Dulcolax Supp) 10 mg DAILY PRN DC CONSTIPATION; Start 11/23/16 at 14: 30 Eye Lubricant (Artificial Tears Oph) 1 drop TID BOTH EYES ; Start 11/23/16 at 21: 00 Insulin Aspart NOVOLOG *MILD* ALGORI... Q4 SC Last administered on 11/24/16 05: 31; Admin Dose 2 UNIT; Start 11/23/16 at 17:00 Piperacillin Sod/ Tazobactam Sod 100 ml @ 200 mls/hr Q8 IVPB Last administered on 11/24/16 05:29; Admin Dose 200 MLS/HR; Start 11/23/16 at 16:00 Sodium Chloride (NS) 1,000 ml @ 100 mls/hr Q10H IV Last administered on 05:29; Admin Dose 100 MLS/HR; Start 11/23/16 at 14:30 Miscellaneous Information 1 ea NOTE XX ; Start 11/23/16 at 14:30 Glucose (Glutose) 15 gm Q15M PRN PO DECREASED GLUCOSE; Start 11/23/16 at 14:30 Glucose (Glutose) 22.5 gm Q15M PRN PO DECREASED GLUCOSE; Start 11/23/16 at 14:30 Dextrose (D50w Syringe) 25 ml Q15M PRN IV DECREASED GLUCOSE; Start 11/23/16 at 14:30 Dextrose (D50w Syringe) 50 ml Q15M PRN IV DECREASED GLUCOSE; Start 11/23/16 at 14:30 Glucagon (Glucagen) 1 mg Q15M PRN IM DECREASED GLUCOSE; Start 11/23/16 at 14:30 Glucose (Glutose) 15 gm Q15M PRN BUCCAL DECREASED GLUCOSE; Start 11/23/16 at 14: 30 Aspirin (Halfprin) 81 mg DAILY PO ; Start 11/24/16 at 09:00 Pantoprazole 40 mg 40 mg BID@06,18 IV Last administered on 11/24/16t 05:29; Admin Dose 40 MG; Start 11/23/16 at 18:00 Phenylephrine HCl 250 ml @ 75 mls/hr TITRATE PRN IV HYPOTENSION; Start at 07:00 Vancomycin HCl 2 gm/Sodium Chloride 500 ml @ 125 mls/hr ONCE ONCE IVPB ; Start 11/24/16 at 09:00; Stop 11/24/16 at 12:59 Norepinephrine/ Dextrose (Levophed/D5W) 500 ml @ 0 mls/hr TITRATE IV ; Start 11/24/16 at 08:00 Vancomycin HCl PER PHARMACY DOSING NOTE XX ; Start 11/24/16 at 08:00 Sodium Chloride 1,000 ml @ 1,000 mls/hr Q1H ONCE IV ; Start 11/24/16 at 08:00; Stop 11/24/16 at 08:59 Magnesium Sulfate (Magnesium Sulfate 2 Gm/50 ml) 50 ml @ 25 mls/hr ONCE ONCE IVPB ; Start 11/24/16 at 08:00; Stop 11/24/16 at 09:59 GENESIS RODRIGUEZ MD Nov 24, 2016 08:14
[2016-11-24 08:36] LABS: AADO2 Arterial 232.1 mmHg (7.0-24.0); Allen Test ACCEPTAB; Arterial Base Excess 2.4 mmol/L (-3.0-3); Arterial COHb 0.4 % (0.0-3.0); Arterial Fraction of Oxyhgb 95.3 % (93.0-99.0); Arterial HCO3 26.4 mmol/L (22.0-26.0); Arterial MetHb 0.5 % (0.0-1.5); Arterial Total Hemglobin 17.5 g/dl (12.0-18.0); MODE VENT - AC
[2016-11-24] MEDS ORDERED: VANCOMYCIN 2 GM in SOD CHLORIDE 0.9% 500 ML IVPB ONE (09:00)
[2016-11-24] MEDS ORDERED: MULTIVITAMINS 10 ML, THIAMINE 100 MG, FOLIC ACID 1 MG in SOD CHLORIDE 0.9% 1,000 ML IVPB SCH (09:00)
[2016-11-24] MEDS: ASPIRIN (EC) 81 MG TAB PO SCH (09:09)
[2016-11-24] MEDS: ARTIFICIAL TEARS 15 ML OPH BOTH EYES SCH ×3 (09:09→20:03)
[2016-11-24] MEDS: MIDAZOLAM (DRIP) 50 mg/50 mL 50 ML IV SCH ×2 (09:15→15:02)
--- NOTE | 2016-11-24 09:57 | PN ---
Date/Time of Note Date/Time of Note DATE: 11/24/16 TIME: 09:36 Assessment/Plan VTE Prophylaxis VTE Prophylaxis Intervention: LMWH Lines/Catheters IV Catheter Type (from Nrs): Central Line Central line still needed: Yes (left femoral TLC ) Urinary Cath still in place: Yes Reason Cath still needed: other (indicate) (critical ) Assessment/Plan Assessment/Plan 56-year-old female with: 1. Pulseless electrical activity cardiac arrest, likely secondary to acute respiratory failure. Appreciate Cardiology eval and recommendations Cardiac enzymes trended 2-D echocardiogram with preserved LVF 2. Acute respiratory failure, unclear primary etiology of it. She has a history of COPD versus asthma and likely obstructive sleep apnea. Continue mechanical vent support. Pulmonary following Start Solumedrol, per records patient chronically on Prednisone 50 mg po daily? 3. GPC positive blood cx x 2, likely aspiration PNA also. Continue Vanco and Zosyn for now and repeat blood cx tomorrow 11/25. 4. Acute kidney injury in setting of PEA cardiac arrest. Improved renal function Monitor her urine output and renal function closely. Continue IVF and replete electrolytes. 5. Coffee ground output from the NG tube, possible upper gastrointestinal bleed. Resolved HB stable Continue proton pump inhibitors. 6. Schizoaffective disorder. For now on Versed drip for sedation. Resume her psychiatric medications once she is off sedation and awake. 7. Super morbid obesity. Prophylaxis. Lovenox for deep venous thrombosis prophylaxis, Protonix b.i.d. for GI ppx. DISPOSITION: Intubated, in ICU with pulmonary and cardiology following Prognosis guarded. Subjective 24 Hr Interval Summary Free Text/Dictation Sedated and intubated CE trending down In SR and on Mckay for BP support Afebrile and WBC up, bld cx with GPC and on abx Exam/Review of Systems Vital Signs Vitals Vital Signs Date Time Temp Pulse Resp B/P Pulse Ox O2 Delivery O2 Flow Rate FiO2 11/24/16 07:00 119 23 127/64 99 Mechanical Ventilator 11/24/16 05:15 50 11/24/16 01:00 98.8 Intake and Output 11/23/16 11/23/16 11/24/16 15:00 23:00 07:00 Intake Total 1223.70 ml 1390.00 ml Output Total 385 ml 185 ml Balance 838.70 ml 1205.00 ml Exam Constitutional: obese (supermorbid) Respiratory: diminished breath sounds (bases bilaterally ), other (on vent ) Cardiovascular: nl pulses, regular rate and rhythm Gastrointestinal: non-tender, soft Musculoskeletal: nl extremities to inspection Extremities: normal pulses, other (no edema, clubbing or cyanosis ) Neurological: other (sedated and intubated ) Results Result Diagram: 11/24/16 0430 11/24/16 0430 Results 24 hrs Laboratory Tests Test 11/23/16 12:13 11/23/16 12:30 11/23/16 12:40 11/23/16 13:30 Bedside Glucose 300 H Activated Partial Thromboplast Time 26.5 Alanine Aminotransferase (ALT/SGPT) 33 Albumin 3.3 Albumin/Globulin Ratio 1.03 Alkaline Phosphatase 48 Amylase Level 50 Anion Gap 24 H Aspartate Amino Transf (AST/SGOT) 46 Basophils # 0.1 Basophils % 0.8 Blood Urea Nitrogen 16 Calcium Level 10.2 Carbon Dioxide Level 27 Chloride Level 89 L Creatinine 1.10 H Direct Bilirubin 0.00 Eosinophils # 0.0 Eosinophils % 0.0 Globulin 3.20 Glucose Level 361 H Hematocrit 50.6 H Hemoglobin 16.1 H INR International Normalized Ratio 1.17 Indirect Bilirubin 0.4 Lactic Acid Level 10.6 *H Lipase 56 Lymphocytes # 2.2 Lymphocytes % 19.1 Mean Corpuscular Hemoglobin 32.6 Mean Corpuscular Hemoglobin Concent 31.8 L Mean Corpuscular Volume 102.4 H Mean Platelet Volume 10.7 H Monocytes # 0.6 Monocytes % 5.0 Neutrophils # 8.4 H Neutrophils % 71.8 Nucleated Red Blood Cells # 1.3 H Nucleated Red Blood Cells % 11.2 H Platelet Count 229 Potassium Level 3.7 Prothrombin Time 15.0 H Prothrombin Time Ratio 1.2 Red Blood Count 4.94 Red Cell Distribution Width 15.2 H Sodium Level 136 Total Bilirubin 0.4 Total Protein 6.5 Troponin I 0.259 *H Urine Amorphous Urates MODERATE Urine Bacteria MODERATE Urine Bilirubin 1+ H Urine Clarity SLIGHTLY CLOUDY Urine Color YELLOW Urine Epithelial Cells FEW Urine Glucose 0.5% H Urine Hemoglobin 1+ H Urine Ictotest NEGATIVE Urine Ketones 40 Urine Leukocyte Esterase NEGATIVE Urine Microscopic RBC 25-50 Urine Microscopic WBC 5-10 Urine Nitrite NEGATIVE Urine Specific [place] 1.025 Urine Total Protein 2+ H Urine Urobilinogen 0.2 E.U./dL Urine Yeast RARE Urine pH 6.0 White Blood Count 11.7 H Arterial Blood HCO3 28.8 H Arterial Blood Base Excess 0.1 Arterial Blood Oxygen Saturation 99.3 H Yakov Test ACCEPTAB Arterial Blood Gas Puncture Site Right Radial Arterial Blood Carboxyhemoglobin 3.0 Arterial Blood Date Drawn 11/23/2016 12:45:38 PM Arterial Blood Methemoglobin 0.6 Arterial Blood pCO2 (Temp correct) 62.3 H Arterial Blood pH (Temp corrected) 7.283 *L Arterial Blood pO2 (Temp corrected) 368.7 H Blood Gas A-a O2 Differential 282.0 H Blood Gas Actual Respiration Rate 20 Blood Gas Critical Value Read Back DR. Ryder TORRES Blood Gas Inspiratory Pressure 40.0 Blood Gas Low PEEP Setting 5.0 Blood Gas Modality VENT - AC Blood Gas Notified Time 11/23/2016 12:53:56 PM Blood Gas Notified Whom CHRIS MCFARLANE Blood Gas Respiration Rate 16.0 Blood Gas Specimen Source Blood arterial Blood Gas Temperature 37.0 Blood Gas Tidal Volume 500.0 FiO2 100.0 Oxyhemoglobin Percent 95.7 Total Hemoglobin 17.5 Acetaminophen Level < 10.0 L D-Dimer 467.98 H D-Dimer Comment Ethyl Alcohol Level < 10.0 Free Thyroxine 0.72 Salicylates Level < 1.0 L Thyroid Stimulating Hormone (TSH) 3.040 Test 11/23/16 16:00 11/23/16 17:19 11/23/16 18:15 11/23/16 19:10 Lactic Acid Level 2.2 1.9 Bedside Glucose 313 H Creatine Kinase 113 Creatine Kinase Index 2.5 Creatinine Kinase MB (Mass) 2.81 H Troponin I 0.272 *H Test 11/23/16 20:31 11/23/16 23:30 11/24/16 00:32 11/24/16 01:23 Bedside Glucose 337 H 233 H Urine Amphetamines Screen Negative Urine Barbiturates Negative Urine Benzodiazepines Screen Positive Urine Cannabinoids Negative Urine Cocaine Screen Negative Urine Opiates Screen Negative Creatine Kinase 126 Creatine Kinase Index 1.9 Creatinine Kinase MB (Mass) 2.42 H Troponin I 0.158 *H Test 11/24/16 04:30 11/24/16 05:28 11/24/16 07:00 11/24/16 09:33 Alanine Aminotransferase (ALT/SGPT) 41 Albumin 3.2 L Albumin/Globulin Ratio 1.14 Alkaline Phosphatase 51 Anion Gap 18 H Aspartate Amino Transf (AST/SGOT) 42 Basophils # 0.1 Basophils % 0.4 Blood Urea Nitrogen 22 H Calcium Level 9.0 Carbon Dioxide Level 30 Chloride Level 98 Creatinine 0.97 Direct Bilirubin 0.00 Eosinophils # 0.0 Eosinophils % 0.0 Globulin 2.80 Glucose Level 198 # Hematocrit 51.4 H Hemoglobin 16.4 H Indirect Bilirubin 0.5 Lymphocytes # 2.0 Lymphocytes % 13.0 L Magnesium Level 1.6 L Mean Corpuscular Hemoglobin 31.5 Mean Corpuscular Hemoglobin Concent 31.9 L Mean Corpuscular Volume 98.8 Mean Platelet Volume 10.6 H Monocytes # 0.9 Monocytes % 5.6 Neutrophils # 12.3 H Neutrophils % 79.9 H Nucleated Red Blood Cells # 0.5 H Nucleated Red Blood Cells % 3.4 H Phosphorus Level 3.6 Platelet Count 234 Potassium Level 3.4 L Red Blood Count 5.20 Red Cell Distribution Width 15.1 H Sodium Level 143 Total Bilirubin 0.5 Total Protein 6.0 L White Blood Count 15.3 #H Bedside Glucose 210 230 H Arterial Blood HCO3 26.4 H Arterial Blood Base Excess 2.4 Arterial Blood Oxygen Saturation 96.2 Yakov Test ACCEPTAB Arterial Blood Gas Puncture Site Right Radial Arterial Blood Carboxyhemoglobin 0.4 Arterial Blood Date Drawn 11/24/2016 8:13:31 AM Arterial Blood Methemoglobin 0.5 Arterial Blood pCO2 (Temp correct) 38.9 Arterial Blood pH (Temp corrected) 7.449 Arterial Blood pO2 (Temp corrected) 80.6 Blood Gas A-a O2 Differential 232.1 H Blood Gas Actual Respiration Rate 20 Blood Gas Low PEEP Setting 5.0 Blood Gas Modality VENT - AC Blood Gas Notified Time 11/24/2016 8:36:31 AM Blood Gas Notified Whom CW Blood Gas Respiration Rate 20.0 Blood Gas Specimen Source Blood arterial Blood Gas Temperature 37.0 Blood Gas Tidal Volume 550.0 FiO2 50.0 Oxyhemoglobin Percent 95.3 Total Hemoglobin 17.5 Medications Medications Current Medications Ondansetron HCl (Zofran Inj) 4 mg Q6H PRN IV NAUSEA AND/OR VOMITING; Start 11/23 at 14:30 Nitroglycerin (Nitroglycerin (Sl Tab) 0.4 Mg) 1 tab Q5M PRN SL CHEST PAIN; Start 11/23/16 at 14:30 Acetaminophen (Tylenol Liquid) 650 mg Q6H PRN PO PAIN LEVEL 1-3 OR FEVER; Start 11/23/16 at 14:30 Acetaminophen (Tylenol Supp) 650 mg Q4H PRN [place] PAIN LEVEL 1-3 OR FEVER; Start 11/23/16 at 14:30 Morphine Sulfate (morphine) 2 mg Q4H PRN IV PAIN LEVEL 7-10; Start 11/23/16 at 14:30 Docusate Sodium (Colace) 100 mg Q12H PRN PO CONSTIPATION; Start 11/23/16 at 14: 30 Magnesium Hydroxide (Milk Of Mag) 30 ml DAILY PRN PO CONSTIPATION; Start at 14:30 Bisacodyl (Dulcolax Supp) 10 mg DAILY PRN [place] CONSTIPATION; Start 11/23/16 at 14: 30 Eye Lubricant (Artificial Tears Oph) 1 drop TID BOTH EYES Last administered on 11/24/16 09:09; Admin Dose 1 DROP; Start 11/23/16 at 21:00 Insulin Aspart NOVOLOG *MILD* ALGORI... Q4 SC Last administered on 11/24/16 05: 31; Admin Dose 2 UNIT; Start 11/23/16 at 17:00 Piperacillin Sod/ Tazobactam Sod 100 ml @ 200 mls/hr Q8 IVPB Last administered on 11/24/16 05:29; Admin Dose 200 MLS/HR; Start 11/23/16 at 16:00 Sodium Chloride (NS) 1,000 ml @ 100 mls/hr Q10H IV Last administered on 05:29; Admin Dose 100 MLS/HR; Start 11/23/16 at 14:30 Miscellaneous Information 1 ea NOTE XX ; Start 11/23/16 at 14:30 Glucose (Glutose) 15 gm Q15M PRN PO DECREASED GLUCOSE; Start 11/23/16 at 14:30 Glucose (Glutose) 22.5 gm Q15M PRN PO DECREASED GLUCOSE; Start 11/23/16 at 14:30 Dextrose (D50w Syringe) 25 ml Q15M PRN IV DECREASED GLUCOSE; Start 11/23/16 at 14:30 Dextrose (D50w Syringe) 50 ml Q15M PRN IV DECREASED GLUCOSE; Start 11/23/16 at 14:30 Glucagon (Glucagen) 1 mg Q15M PRN IM DECREASED GLUCOSE; Start 11/23/16 at 14:30 Glucose (Glutose) 15 gm Q15M PRN BUCCAL DECREASED GLUCOSE; Start 11/23/16 at 14: 30 Aspirin (Halfprin) 81 mg DAILY PO Last administered on 11/24/16 09:09; Admin Dose 81 MG; Start 11/24/16 at 09:00 Pantoprazole 40 mg 40 mg BID@06,18 IV Last administered on 11/24/16 05:29; Admin Dose 40 MG; Start 11/23/16 at 18:00 Phenylephrine HCl 250 ml @ 75 mls/hr TITRATE PRN IV HYPOTENSION Last administered on 11/24/16 09:14; Admin Dose 112.5 MLS/HR; Start 11/24/16 at 07:00 Vancomycin HCl 2 gm/Sodium Chloride 500 ml @ 125 mls/hr ONCE ONCE IVPB Last administered on 11/24/16 09:25; Admin Dose 125 MLS/HR; Start 11/24/16 at 09:00; Stop 11/24/16 at 12:59 Norepinephrine/ Dextrose (Levophed/D5W) 500 ml @ 0 mls/hr TITRATE IV ; Start 11/24/16 at 08:00 Vancomycin HCl PER PHARMACY DOSING NOTE XX ; Start 11/24/16 at 08:00 Magnesium Sulfate (Magnesium Sulfate 2 Gm/50 ml) 50 ml @ 25 mls/hr ONCE ONCE IVPB Last administered on 11/24/16 09:09; Admin Dose 25 MLS/HR; Start 11/24/16 at 08:00; Stop 11/24/16 at 09:59 JERRI MORENO Nov 24, 2016 09:48
[2016-11-24] MEDS ORDERED: POTASSIUM CHLORIDE 250 ML IVPB ONE (10:00)
--- NOTE | 2016-11-24 10:04 | RADRPT ---
PROCEDURE: XR Chest. CLINICAL INDICATION: Respiratory failure. Intubation. TECHNIQUE: Single AP portable chest. COMPARISON: 11/23/2016 FINDINGS: The cardiomediastinal silhouette is within normal limits of size . Endotracheal tube tip 4.6 cm abov e the ciara. NG tube and stable position. Mild persistent vascular congestion. .The lungs are cl ear without pleural effusion or focal consolidation. No pneumothorax. The osseous structures and sof t tissues are unremarkable. IMPRESSION: 1. Endotracheal tube tip 4.6 cm above the ciara. Mild vascular congestion without significant inte rval change. RPTAT:AAJJ Physician Omid Date Time Electronically viewed and signed by Physician Omid on 11/24/2016 10:04 LILY/
[2016-11-24] MEDS: PHENYLephrine 40 MG in DEXTROSE 5% 496 ML IV SCH ×2 (11:52→22:21)
[2016-11-24 11:54] LABS: CK-MB 1.02 ng/ml (0.0-2.4)
[2016-11-24 11:58] LABS: TROPONIN-I 0.087 ng/ml (0.00-0.12)
--- NOTE | 2016-11-24 12:43 | CONS ---
Date/Time of Note Date/Time of Note DATE: 11/24/16 TIME: 12:37 Consult Date/Type/Reason Admit Date/Time Nov 23, 2016 at 14:03 Initial Consult Date 11/24/16 Type of Consultation: Pulm Ordering Provider: JERRI MORENO Subjective Sedated on mechanical ventilation on versed gtt. Remains on phenylephrine gtt. Objective Vital Signs Date Time Temp Pulse Resp B/P Pulse Ox O2 Delivery O2 Flow Rate FiO2 11/24/16 12:00 99.6 91 20 89/58 93 11/24/16 09:00 Mechanical Ventilator 11/24/16 05:15 50 Intake and Output 11/23/16 11/23/16 11/24/16 15:00 23:00 07:00 Intake Total 1223.70 ml 1390.00 ml Output Total 385 ml 185 ml Balance 838.70 ml 1205.00 ml GENERAL: Morbidly obese lady, intubated on mechanical ventilation. Grimaces to painful stimuli. NECK: Short. No lymphadenopathy. CARDIAC: S1, S2, 2/6 systolic ejection murmur. CHEST: Diminished air entry bilaterally. ABDOMEN: Obese, soft, nontender, no guarding, no rebound. EXTREMITIES: No cyanosis, clubbing, 2+ edema. Results/Medications Result Diagram: 11/24/16 0430 11/24/16 0430 Results 24 hrs Laboratory Tests Test 11/23/16 12:40 11/23/16 13:30 11/23/16 16:00 11/23/16 17:19 Arterial Blood HCO3 28.8 H Arterial Blood Base Excess 0.1 Arterial Blood Oxygen Saturation 99.3 H Yakov Test ACCEPTAB Arterial Blood Gas Puncture Site Right Radial Arterial Blood Carboxyhemoglobin 3.0 Arterial Blood Date Drawn 11/23/2016 12:45:38 PM Arterial Blood Methemoglobin 0.6 Arterial Blood pCO2 (Temp correct) 62.3 H Arterial Blood pH (Temp corrected) 7.283 *L Arterial Blood pO2 (Temp corrected) 368.7 H Blood Gas A-a O2 Differential 282.0 H Blood Gas Actual Respiration Rate 20 Blood Gas Critical Value Read Back DR. Ryder TORRES Blood Gas Inspiratory Pressure 40.0 Blood Gas Low PEEP Setting 5.0 Blood Gas Modality VENT - AC Blood Gas Notified Time 11/23/2016 12:53:56 PM Blood Gas Notified Whom T.ERASMO RT Blood Gas Respiration Rate 16.0 Blood Gas Specimen Source Blood arterial Blood Gas Temperature 37.0 Blood Gas Tidal Volume 500.0 FiO2 100.0 Oxyhemoglobin Percent 95.7 Total Hemoglobin 17.5 Acetaminophen Level < 10.0 L D-Dimer 467.98 H D-Dimer Comment Ethyl Alcohol Level < 10.0 Free Thyroxine 0.72 Salicylates Level < 1.0 L Thyroid Stimulating Hormone (TSH) 3.040 Lactic Acid Level 2.2 Bedside Glucose 313 H Test 11/23/16 18:15 11/23/16 19:10 11/23/16 20:31 11/23/16 23:30 Creatine Kinase 113 Creatine Kinase Index 2.5 Creatinine Kinase MB (Mass) 2.81 H Troponin I 0.272 *H Lactic Acid Level 1.9 Bedside Glucose 337 H Urine Amphetamines Screen Negative Urine Barbiturates Negative Urine Benzodiazepines Screen Positive Urine Cannabinoids Negative Urine Cocaine Screen Negative Urine Opiates Screen Negative Test 11/24/16 00:32 11/24/16 01:23 11/24/16 04:30 11/24/16 05:28 Creatine Kinase 126 Creatine Kinase Index 1.9 Creatinine Kinase MB (Mass) 2.42 H Troponin I 0.158 *H Bedside Glucose 233 H 210 Alanine Aminotransferase (ALT/SGPT) 41 Albumin 3.2 L Albumin/Globulin Ratio 1.14 Alkaline Phosphatase 51 Anion Gap 18 H Aspartate Amino Transf (AST/SGOT) 42 Basophils # 0.1 Basophils % 0.4 Blood Urea Nitrogen 22 H Calcium Level 9.0 Carbon Dioxide Level 30 Chloride Level 98 Creatinine 0.97 Direct Bilirubin 0.00 Eosinophils # 0.0 Eosinophils % 0.0 Globulin 2.80 Glucose Level 198 # Hematocrit 51.4 H Hemoglobin 16.4 H Indirect Bilirubin 0.5 Lymphocytes # 2.0 Lymphocytes % 13.0 L Magnesium Level 1.6 L Mean Corpuscular Hemoglobin 31.5 Mean Corpuscular Hemoglobin Concent 31.9 L Mean Corpuscular Volume 98.8 Mean Platelet Volume 10.6 H Monocytes # 0.9 Monocytes % 5.6 Neutrophils # 12.3 H Neutrophils % 79.9 H Nucleated Red Blood Cells # 0.5 H Nucleated Red Blood Cells % 3.4 H Phosphorus Level 3.6 Platelet Count 234 Potassium Level 3.4 L Red Blood Count 5.20 Red Cell Distribution Width 15.1 H Sodium Level 143 Total Bilirubin 0.5 Total Protein 6.0 L White Blood Count 15.3 #H Test 11/24/16 07:00 11/24/16 09:33 11/24/16 11:10 Arterial Blood HCO3 26.4 H Arterial Blood Base Excess 2.4 Arterial Blood Oxygen Saturation 96.2 Yakov Test ACCEPTAB Arterial Blood Gas Puncture Site Right Radial Arterial Blood Carboxyhemoglobin 0.4 Arterial Blood Date Drawn 11/24/2016 8:13:31 AM Arterial Blood Methemoglobin 0.5 Arterial Blood pCO2 (Temp correct) 38.9 Arterial Blood pH (Temp corrected) 7.449 Arterial Blood pO2 (Temp corrected) 80.6 Blood Gas A-a O2 Differential 232.1 H Blood Gas Actual Respiration Rate 20 Blood Gas Low PEEP Setting 5.0 Blood Gas Modality VENT - AC Blood Gas Notified Time 11/24/2016 8:36:31 AM Blood Gas Notified Whom CW Blood Gas Respiration Rate 20.0 Blood Gas Specimen Source Blood arterial Blood Gas Temperature 37.0 Blood Gas Tidal Volume 550.0 FiO2 50.0 Oxyhemoglobin Percent 95.3 Total Hemoglobin 17.5 Bedside Glucose 230 H Creatine Kinase 113 Creatine Kinase Index 0.9 Creatinine Kinase MB (Mass) 1.02 Troponin I 0.087 Medications Current Medications Ondansetron HCl (Zofran Inj) 4 mg Q6H PRN IV NAUSEA AND/OR VOMITING; Start 11/23 at 14:30 Nitroglycerin (Nitroglycerin (Sl Tab) 0.4 Mg) 1 tab Q5M PRN SL CHEST PAIN; Start 11/23/16 at 14:30 Acetaminophen (Tylenol Liquid) 650 mg Q6H PRN PO PAIN LEVEL 1-3 OR FEVER; Start 11/23/16 at 14:30 Acetaminophen (Tylenol Supp) 650 mg Q4H PRN [place] PAIN LEVEL 1-3 OR FEVER; Start 11/23/16 at 14:30 Morphine Sulfate (morphine) 2 mg Q4H PRN IV PAIN LEVEL 7-10; Start 11/23/16 at 14:30 Docusate Sodium (Colace) 100 mg Q12H PRN PO CONSTIPATION; Start 11/23/16 at 14: 30 Magnesium Hydroxide (Milk Of Mag) 30 ml DAILY PRN PO CONSTIPATION; Start at 14:30 Bisacodyl (Dulcolax Supp) 10 mg DAILY PRN [place] CONSTIPATION; Start 11/23/16 at 14: 30 Eye Lubricant 1 drop 1 drop TID BOTH EYES Last administered on 11/24/16 09:09; Admin Dose 1 DROP; Start 11/23/16 at 21:00 Piperacillin Sod/ Tazobactam Sod 100 ml @ 200 mls/hr Q8 IVPB Last administered on 11/24/16 05:29; Admin Dose 200 MLS/HR; Start 11/23/16 at 16:00 Sodium Chloride (NS) 1,000 ml @ 100 mls/hr Q10H IV Last administered on 05:29; Admin Dose 100 MLS/HR; Start 11/23/16 at 14:30 Miscellaneous Information 1 ea NOTE XX ; Start 11/23/16 at 14:30 Glucose (Glutose) 15 gm Q15M PRN PO DECREASED GLUCOSE; Start 11/23/16 at 14:30 Glucose (Glutose) 22.5 gm Q15M PRN PO DECREASED GLUCOSE; Start 11/23/16 at 14:30 Dextrose (D50w Syringe) 25 ml Q15M PRN IV DECREASED GLUCOSE; Start 11/23/16 at 14:30 Dextrose (D50w Syringe) 50 ml Q15M PRN IV DECREASED GLUCOSE; Start 11/23/16 at 14:30 Glucagon (Glucagen) 1 mg Q15M PRN IM DECREASED GLUCOSE; Start 11/23/16 at 14:30 Glucose (Glutose) 15 gm Q15M PRN BUCCAL DECREASED GLUCOSE; Start 11/23/16 at 14: 30 Aspirin (Halfprin) 81 mg DAILY PO Last administered on 11/24/16 09:09; Admin Dose 81 MG; Start 11/24/16 at 09:00 Pantoprazole 40 mg 40 mg BID@06,18 IV Last administered on 11/24/16 05:29; Admin Dose 40 MG; Start 11/23/16 at 18:00 Vancomycin HCl 2 gm/Sodium Chloride 500 ml @ 125 mls/hr ONCE ONCE IVPB Last administered on 11/24/16 09:25; Admin Dose 125 MLS/HR; Start 11/24/16 at 09:00; Stop 11/24/16 at 12:59 Norepinephrine/ Dextrose (Levophed/D5W) 500 ml @ 0 mls/hr TITRATE IV ; Start 11/24/16 at 08:00 Vancomycin HCl (Vanco Iv Per Pharmacy) PER PHARMACY DOSING NOTE XX ; Start at 08:00 Enoxaparin Sodium 30 mg 30 mg BID SC ; Start 11/24/16 at 10:00 Potassium Chloride (KCl 40 MEQ/250 ML NS) 250 ml @ 62.5 mls/hr ONCE ONCE IVPB ; Start 11/24/16 at 10:00; Stop 11/24/16 at 13:59 Nystatin (Nystatin Powder) 1 applic BID TOP ; Start 11/24/16 at 10:00 Insulin Aspart NOVOLOG *MODERATE* ALGORI... Q4 SC ; Start 11/24/16 at 13:00 Vancomycin HCl 1.5 gm/Sodium Chloride 250 ml @ 83.333 mls/ hr Q12H IVPB ; Start 11/24/16 at 22:00 Phenylephrine HCl/ Dextrose (Mckay-Syneph/D5W) 500 ml @ 0 mls/hr TITRATE IV Last administered on 11/24/16t 11:52; Admin Dose 112.5 MLS/HR; Start 11/24/16 at 11:30 Assessment/Plan Additional Assessment/Plan IMPRESSION: 1. Acute on chronic hypercapnic/hypoxemic resp failure 2. Shock 3. S/P PEA arrest due to #1 4. Demand ischemia 5. Schizoaffective disorder. RECS: 1. Continued mechanical ventilation. Increase PEEP 7 to optimize FRC 2. Broad-spectrum antibiotics. 3. Continue pressors to MAP > 65 4. Follow-up cultures 5. Check C.Diff 6. Deep vein thrombosis and GI prophylaxis. 7 Am labs 35 min cc time DUSTIN ADHIKARI MD Nov 24, 2016 12:43
[2016-11-24] MEDS: NYSTATIN 30 GM POWDER BTL TOP SCH ×2 (12:52→20:03)
[2016-11-24] MEDS: ENOXAPARIN 30 MG/0.3 ML SYG SC SCH ×2 (12:56→20:05)
[2016-11-24] MEDS ORDERED: PHENYLephrine 40 MG in DEXTROSE 5% 496 ML IV SCH (19:00)
[2016-11-24] MEDS ORDERED: ACETAMINOPHEN 650MG/20.3ML CUP GTB PRN (20:30)
[2016-11-24] MEDS: VANCOMYCIN 1.5 GM in SOD CHLORIDE 0.9% 250 ML IVPB SCH (22:13)
[2016-11-25] VITALS (91 sets, daily range): BP systolic 65–160; BP diastolic 38–121; PULSE 47–101; RESP 12–33
[2016-11-25] MEDS: MIDAZOLAM (DRIP) 50 mg/50 mL 50 ML IV SCH (00:45)
[2016-11-25] MEDS: INSULIN ASPART [NOVOLOG] 3 ML PEN SC SCH ×6 (00:56→20:08)
[2016-11-25] MEDS: IPRATROPIUM (HFA) 12.9 GM INHALER INH SCH ×6 (01:03→20:38)
[2016-11-25] MEDS: ALBUTEROL HFA 8 GM INHALER INH SCH ×6 (01:04→20:38)
[2016-11-25 04:59] LABS: ADD SCAN DIFF NO
[2016-11-25 05:04] LABS: AADO2 Arterial 208.6 mmHg (7.0-24.0); Allen Test ACCEPTAB; Arterial COHb 0.5 % (0.0-3.0); Arterial Fraction of Oxyhgb 94.1 % (93.0-99.0); Arterial HCO3 24.8 mmol/L (22.0-26.0); Arterial MetHb 0.4 % (0.0-1.5); Arterial Total Hemglobin 15.2 g/dl (12.0-18.0); MODE VENT-AC
[2016-11-25 05:17] LABS: BASOPHILS % 0.1 % (0.0-2.0); HEMATOCRIT 43.3 % (37.0-47.0); HEMOGLOBIN 13.6 g/dl (12.0-16.0); LYMPHOCYTES # 2.1 10^3/ul (0.8-2.9); LYMPHOCYTES % 15.3 % (15.0-51.0); MEAN CORPUSCULAR HEMOGLOBIN 31.6 pg (29.0-33.0); MEAN CORPUSCULAR HGB CONC 31.4 g/dl (32.0-37.0); MEAN CORPUSCULAR VOLUME 100.5 fl (82.0-101.0); MEAN PLATELET VOLUME 10.7 fl (7.4-10.4); MONOCYTE # 0.8 10^3/ul (0.3-0.9); MONOCYTES % 5.4 % (0.0-11.0); NEUTROPHIL # 10.9 10^3/ul (1.6-7.5); NEUTROPHILS % 78.3 % (39.0-77.0); NUCLEATED RED BLOOD CELLS # 0.1 10^3/ul (0.0-0.0); NUCLEATED RED BLOOD CELLS% 0.9 /100WBC (0.0-0.0); PLATELET COUNT 175 10^3/UL (140-415); RED BLOOD COUNT 4.31 10^6/ul (4.20-5.40); RED CELL DISTRIBUTION WIDTH 15.9 % (11.5-14.5); WHITE BLOOD COUNT 13.9 10^3/ul (4.8-10.8)
[2016-11-25] MEDS: PHENYLephrine 40 MG in DEXTROSE 5% 496 ML IV SCH ×4 (05:18→21:35)
[2016-11-25 05:33] LABS: POTASSIUM 3.1 mmol/L (3.5-5.1)
[2016-11-25 05:35] LABS: CREATININE 0.76 mg/dl (0.44-1.00)
[2016-11-25 05:36] LABS: CALCIUM 8.5 mg/dl (8.4-10.2); PHOSPHORUS 2.4 mg/dl (2.5-4.9)
[2016-11-25] MEDS: PANTOPRAZOLE 40 MG INJ IV SCH ×2 (06:27→17:15)
[2016-11-25] MEDS: PIPER-TAZO 3.375 GM IV (PMX) 100 ML IVPB SCH ×3 (06:27→21:26)
[2016-11-25] MEDS: SOD CHLORIDE 0.9% 1,000 ML IV SCH ×2 (06:30→16:30)
[2016-11-25] MEDS ORDERED: POTASSIUM CHLORIDE 250 ML IVPB ONE (07:00)
[2016-11-25] MEDS: ASPIRIN (EC) 81 MG TAB PO SCH (08:01)
[2016-11-25] MEDS: ARTIFICIAL TEARS 15 ML OPH BOTH EYES SCH ×3 (08:01→20:11)
[2016-11-25] MEDS: ENOXAPARIN 30 MG/0.3 ML SYG SC SCH ×2 (08:07→20:09)
[2016-11-25] MEDS: NYSTATIN 30 GM POWDER BTL TOP SCH ×2 (10:00→20:11)
[2016-11-25] MEDS: VANCOMYCIN 1.5 GM in SOD CHLORIDE 0.9% 250 ML IVPB SCH ×2 (10:00→22:05)
[2016-11-25] MEDS ORDERED: MAGNESIUM SULFATE 1 GM/D5W 100 ML IVPB ONE (11:30)
[2016-11-25] MEDS ORDERED: POTASSIUM CHLORIDE 20 MEQ POWDER FOR ORAL SOLN NGT ONE ×2 (11:30→18:00)
[2016-11-25] MEDS ORDERED: PHENYLephrine 20MG IN 250 ML 250 ML ONE ×2 (11:54→16:45)
--- NOTE | 2016-11-25 12:03 | CONS ---
Date/Time of Note Date/Time of Note DATE: 11/25/16 TIME: 12:00 Assessment/Plan Assessment/Plan Additional Assessment/Plan Respiratory failure PEA arrest Preserved ejection fraction Hypotension requiring IV pressor Obesity hypoventilation syndrome Arrhythmia -Patient with episodes of of paroxysmal atrial tachycardia. Patient with hypokalemia and borderline magnesium. Would supplement to maintain potassium above 4.0 and magnesium above 2.0. Titrate IV pressor to maintain SBP greater than 90 and/or map greater than 60. Vent management as per our pulmonary colleagues. Consultation Date/Type/Reason Admit Date/Time Nov 23, 2016 at 14:03 Initial Consult Date 11/24/16 Type of Consultation: cv Referring Provider: JERRI MORENO 24 HR Interval Summary Free Text/Dictation Patient seen and examined. Discussion with nurse, blood pressure has been labile but possibly because of cuff readings. Episodes of paroxysmal atrial tachycardia. Exam/Review of Systems Vital Signs Vitals Vital Signs Date Time Temp Pulse Resp B/P Pulse Ox O2 Delivery O2 Flow Rate FiO2 11/25/16 10:00 70 19 114/62 94 Mechanical Ventilator 11/25/16 08:00 98.2 11/25/16 05:57 45 Intake and Output 11/24/16 11/24/16 11/25/16 15:00 23:00 07:00 Intake Total 2033.5 ml 2457.5 ml 1580 ml Output Total 400 ml 460 ml 305 ml Balance 1633.5 ml 1997.5 ml 1275 ml Exam Sedated and intubated, no apparent distress Constitutional: obese ENMT: intubated Respiratory: other (Coarse breath sounds bilaterally, scattered rhonchi, no wheezing) Cardiovascular: other (S1-S2 heard), regular rate and rhythm Gastrointestinal: bowel sounds, other (No guarding or grimacing with palpation) , soft Extremities: edema Results Result Diagram: 11/25/16 0400 11/25/16 0400 Results 24 hrs Laboratory Tests Test 11/24/16 13:47 11/24/16 17:46 11/24/16 20:01 11/25/16 00:52 Bedside Glucose 231 H 207 225 H 158 Test 11/25/16 04:00 11/25/16 05:00 11/25/16 05:16 11/25/16 08:03 Anion Gap 11 # Basophils # 0.0 Basophils % 0.1 Blood Urea Nitrogen 15 Calcium Level 8.5 Carbon Dioxide Level 30 Chloride Level 103 Creatinine 0.76 Eosinophils # 0.0 Eosinophils % 0.0 Glucose Level 162 Hematocrit 43.3 Hemoglobin 13.6 Lactic Acid Level 1.7 Lymphocytes # 2.1 Lymphocytes % 15.3 Magnesium Level 2.0 Mean Corpuscular Hemoglobin 31.6 Mean Corpuscular Hemoglobin Concent 31.4 L Mean Corpuscular Volume 100.5 Mean Platelet Volume 10.7 H Monocytes # 0.8 Monocytes % 5.4 Neutrophils # 10.9 H Neutrophils % 78.3 H Nucleated Red Blood Cells # 0.1 H Nucleated Red Blood Cells % 0.9 H Phosphorus Level 2.4 #L Platelet Count 175 # Potassium Level 3.1 L Red Blood Count 4.31 Red Cell Distribution Width 15.9 H Sodium Level 141 White Blood Count 13.9 H Arterial Blood HCO3 24.8 Arterial Blood Base Excess 2.0 Arterial Blood Oxygen Saturation 95.0 Yakov Test ACCEPTAB Arterial Blood Gas Puncture Site Right Radial Arterial Blood Carboxyhemoglobin 0.5 Arterial Blood Date Drawn 11/25/2016 4:40:38 AM Arterial Blood Methemoglobin 0.4 Arterial Blood pCO2 (Temp correct) 33.5 L Arterial Blood pH (Temp corrected) 7.487 H Arterial Blood pO2 (Temp corrected) 74.1 L Blood Gas A-a O2 Differential 208.6 H Blood Gas Actual Respiration Rate 20 Blood Gas Inspiratory Pressure 36.0 Blood Gas Low PEEP Setting 5.0 Blood Gas Modality VENT-AC Blood Gas Notified Time 11/25/2016 5:04:25 AM Blood Gas Notified Whom JMD Blood Gas Respiration Rate 20.0 Blood Gas Specimen Source Blood arterial Blood Gas Temperature 37.0 Blood Gas Tidal Volume 550.0 FiO2 45.0 Oxyhemoglobin Percent 94.1 Total Hemoglobin 15.2 Bedside Glucose 163 208 Medications Medications Current Medications Ondansetron HCl (Zofran Inj) 4 mg Q6H PRN IV NAUSEA AND/OR VOMITING; Start 11/23 at 14:30 Nitroglycerin (Nitroglycerin (Sl Tab) 0.4 Mg) 1 tab Q5M PRN SL CHEST PAIN; Start 11/23/16 at 14:30 Acetaminophen (Tylenol Supp) 650 mg Q4H PRN [place] PAIN LEVEL 1-3 OR FEVER; Start 11/23/16 at 14:30 Morphine Sulfate (morphine) 2 mg Q4H PRN IV PAIN LEVEL 7-10; Start 11/23/16 at 14:30 Docusate Sodium (Colace) 100 mg Q12H PRN PO CONSTIPATION; Start 11/23/16 at 14: 30 Magnesium Hydroxide (Milk Of Mag) 30 ml DAILY PRN PO CONSTIPATION; Start at 14:30 Bisacodyl (Dulcolax Supp) 10 mg DAILY PRN [place] CONSTIPATION; Start 11/23/16 at 14: 30 Eye Lubricant 1 drop 1 drop TID BOTH EYES Last administered on 11/25/16 08:01; Admin Dose 1 DROP; Start 11/23/16 at 21:00 Piperacillin Sod/ Tazobactam Sod 100 ml @ 200 mls/hr Q8 IVPB Last administered on 11/25/16 06:27; Admin Dose 200 MLS/HR; Start 11/23/16 at 16:00 Sodium Chloride (NS) 1,000 ml @ 100 mls/hr Q10H IV Last administered on 19:32; Admin Dose 100 MLS/HR; Start 11/23/16 at 14:30 Miscellaneous Information 1 ea NOTE XX ; Start 11/23/16 at 14:30 Glucose (Glutose) 15 gm Q15M PRN PO DECREASED GLUCOSE; Start 11/23/16 at 14:30 Glucose (Glutose) 22.5 gm Q15M PRN PO DECREASED GLUCOSE; Start 11/23/16 at 14:30 Dextrose (D50w Syringe) 25 ml Q15M PRN IV DECREASED GLUCOSE; Start 11/23/16 at 14:30 Dextrose (D50w Syringe) 50 ml Q15M PRN IV DECREASED GLUCOSE; Start 11/23/16 at 14:30 Glucagon (Glucagen) 1 mg Q15M PRN IM DECREASED GLUCOSE; Start 11/23/16 at 14:30 Glucose (Glutose) 15 gm Q15M PRN BUCCAL DECREASED GLUCOSE; Start 11/23/16 at 14: 30 Aspirin (Halfprin) 81 mg DAILY PO Last administered on 11/25/16 08:01; Admin Dose 81 MG; Start 11/24/16 at 09:00 Pantoprazole 40 mg 40 mg BID@06,18 IV Last administered on 11/25/16 06:27; Admin Dose 40 MG; Start 11/23/16 at 18:00 Norepinephrine/ Dextrose (Levophed/D5W) 500 ml @ 0 mls/hr TITRATE IV ; Start 11/24/16 at 08:00 Vancomycin HCl (Vanco Iv Per Pharmacy) PER PHARMACY DOSING NOTE XX ; Start at 08:00 Enoxaparin Sodium (Lovenox) 30 mg BID SC Last administered on 11/25/16 08:07; Admin Dose 30 MG; Start 11/24/16 at 10:00 Nystatin (Nystatin Powder) 1 applic BID TOP Last administered on 11/25/16 10:00 ; Admin Dose 1 APPLIC; Start 11/24/16 at 10:00 Insulin Aspart NOVOLOG *MODERATE* ALGORI... Q4 SC Last administered on 08:06; Admin Dose 4 UNIT; Start 11/24/16 at 13:00 Vancomycin HCl 1.5 gm/Sodium Chloride 250 ml @ 83.333 mls/ hr Q12H IVPB Last administered on 11/25/16 10:00; Admin Dose 83.333 MLS/HR; Start 11/24/16 at 22:00 Phenylephrine HCl/ Dextrose (Mckay-Syneph/D5W) 500 ml @ 0 mls/hr TITRATE IV Last administered on 11/25/16 05:18; Admin Dose 75 MLS/HR; Start 11/24/16 at 11:30 Acetaminophen (Tylenol Liquid) 650 mg Q6H PRN GTB PAIN LEVEL 1-3 OR FEVER; Start 11/24/16 at 20:30 Potassium Chloride 40 meq 40 meq ONCE ONCE NGT ; Start 11/25/16 at 18:00; Stop 11/25/16 at 18:01 Magnesium Sulfate/ Dextrose (Magnesium Sulfate 1 Gm/D5W) 100 ml @ 100 mls/hr ONCE ONCE IVPB Last administered on 11/25/16 11:46; Admin Dose 100 MLS/HR; Start 11/25/16 at 11:30; Stop 11/25/16 at 12:29 Miscellaneous Information (*Rx Drug Level Order Reminder*) VANCOMYCIN TROUGH LEVEL... ONCE ONCE XX ; Start 11/26/16 at 09:00; Stop 11/26/16 at 09:01 Lito Feldman DO Nov 25, 2016 12:03
--- NOTE | 2016-11-25 12:43 | CONS ---
Date/Time of Note Date/Time of Note DATE: 11/25/16 TIME: 12:37 Consult Date/Type/Reason Admit Date/Time Nov 23, 2016 at 14:03 Initial Consult Date 11/24/16 Type of Consultation: Pulm Ordering Provider: JERRI MORENO Subjective Clinical examination completely changed today-->patient unresponsive off of sedation. Pupils fixed and dilated; no GAG; no corneal reflex; not overbreathing vent. Objective Vital Signs Date Time Temp Pulse Resp B/P Pulse Ox O2 Delivery O2 Flow Rate FiO2 11/25/16 10:00 70 19 114/62 94 Mechanical Ventilator 11/25/16 08:00 98.2 11/25/16 05:57 45 Intake and Output 11/24/16 11/24/16 11/25/16 15:00 23:00 07:00 Intake Total 2033.5 ml 2457.5 ml 1580 ml Output Total 400 ml 460 ml 305 ml Balance 1633.5 ml 1997.5 ml 1275 ml GENERAL: Morbidly obese lady, intubated on mechanical ventilation. NECK: Short. No lymphadenopathy. CARDIAC: S1, S2, 2/6 systolic ejection murmur. CHEST: Diminished air entry bilaterally. ABDOMEN: Obese, soft, nontender, no guarding, no rebound. EXTREMITIES: No cyanosis, clubbing, 2+ edema. NEURO: Pupils fixed and dilated; no GAG; no corneal reflex; not overbreathing vent. Results/Medications Result Diagram: 11/25/16 0400 11/25/16 0400 Results 24 hrs Laboratory Tests Test 11/24/16 13:47 11/24/16 17:46 11/24/16 20:01 11/25/16 00:52 Bedside Glucose 231 H 207 225 H 158 Test 11/25/16 04:00 11/25/16 05:00 11/25/16 05:16 11/25/16 08:03 Anion Gap 11 # Basophils # 0.0 Basophils % 0.1 Blood Urea Nitrogen 15 Calcium Level 8.5 Carbon Dioxide Level 30 Chloride Level 103 Creatinine 0.76 Eosinophils # 0.0 Eosinophils % 0.0 Glucose Level 162 Hematocrit 43.3 Hemoglobin 13.6 Lactic Acid Level 1.7 Lymphocytes # 2.1 Lymphocytes % 15.3 Magnesium Level 2.0 Mean Corpuscular Hemoglobin 31.6 Mean Corpuscular Hemoglobin Concent 31.4 L Mean Corpuscular Volume 100.5 Mean Platelet Volume 10.7 H Monocytes # 0.8 Monocytes % 5.4 Neutrophils # 10.9 H Neutrophils % 78.3 H Nucleated Red Blood Cells # 0.1 H Nucleated Red Blood Cells % 0.9 H Phosphorus Level 2.4 #L Platelet Count 175 # Potassium Level 3.1 L Red Blood Count 4.31 Red Cell Distribution Width 15.9 H Sodium Level 141 White Blood Count 13.9 H Arterial Blood HCO3 24.8 Arterial Blood Base Excess 2.0 Arterial Blood Oxygen Saturation 95.0 Yakov Test ACCEPTAB Arterial Blood Gas Puncture Site Right Radial Arterial Blood Carboxyhemoglobin 0.5 Arterial Blood Date Drawn 11/25/2016 4:40:38 AM Arterial Blood Methemoglobin 0.4 Arterial Blood pCO2 (Temp correct) 33.5 L Arterial Blood pH (Temp corrected) 7.487 H Arterial Blood pO2 (Temp corrected) 74.1 L Blood Gas A-a O2 Differential 208.6 H Blood Gas Actual Respiration Rate 20 Blood Gas Inspiratory Pressure 36.0 Blood Gas Low PEEP Setting 5.0 Blood Gas Modality VENT-AC Blood Gas Notified Time 11/25/2016 5:04:25 AM Blood Gas Notified Whom JMD Blood Gas Respiration Rate 20.0 Blood Gas Specimen Source Blood arterial Blood Gas Temperature 37.0 Blood Gas Tidal Volume 550.0 FiO2 45.0 Oxyhemoglobin Percent 94.1 Total Hemoglobin 15.2 Bedside Glucose 163 208 Medications Current Medications Ondansetron HCl (Zofran Inj) 4 mg Q6H PRN IV NAUSEA AND/OR VOMITING; Start 11/23 at 14:30 Nitroglycerin (Nitroglycerin (Sl Tab) 0.4 Mg) 1 tab Q5M PRN SL CHEST PAIN; Start 11/23/16 at 14:30 Acetaminophen (Tylenol Supp) 650 mg Q4H PRN [place] PAIN LEVEL 1-3 OR FEVER; Start 11/23/16 at 14:30 Morphine Sulfate (morphine) 2 mg Q4H PRN IV PAIN LEVEL 7-10; Start 11/23/16 at 14:30 Docusate Sodium (Colace) 100 mg Q12H PRN PO CONSTIPATION; Start 11/23/16 at 14: 30 Magnesium Hydroxide (Milk Of Mag) 30 ml DAILY PRN PO CONSTIPATION; Start at 14:30 Bisacodyl (Dulcolax Supp) 10 mg DAILY PRN [place] CONSTIPATION; Start 11/23/16 at 14: 30 Eye Lubricant 1 drop 1 drop TID BOTH EYES Last administered on 11/25/16 08:01; Admin Dose 1 DROP; Start 11/23/16 at 21:00 Piperacillin Sod/ Tazobactam Sod 100 ml @ 200 mls/hr Q8 IVPB Last administered on 11/25/16 06:27; Admin Dose 200 MLS/HR; Start 11/23/16 at 16:00 Sodium Chloride (NS) 1,000 ml @ 100 mls/hr Q10H IV Last administered on 19:32; Admin Dose 100 MLS/HR; Start 11/23/16 at 14:30 Miscellaneous Information 1 ea NOTE XX ; Start 11/23/16 at 14:30 Glucose (Glutose) 15 gm Q15M PRN PO DECREASED GLUCOSE; Start 11/23/16 at 14:30 Glucose (Glutose) 22.5 gm Q15M PRN PO DECREASED GLUCOSE; Start 11/23/16 at 14:30 Dextrose (D50w Syringe) 25 ml Q15M PRN IV DECREASED GLUCOSE; Start 11/23/16 at 14:30 Dextrose (D50w Syringe) 50 ml Q15M PRN IV DECREASED GLUCOSE; Start 11/23/16 at 14:30 Glucagon (Glucagen) 1 mg Q15M PRN IM DECREASED GLUCOSE; Start 11/23/16 at 14:30 Glucose (Glutose) 15 gm Q15M PRN BUCCAL DECREASED GLUCOSE; Start 11/23/16 at 14: 30 Aspirin (Halfprin) 81 mg DAILY PO Last administered on 11/25/16 08:01; Admin Dose 81 MG; Start 11/24/16 at 09:00 Pantoprazole 40 mg 40 mg BID@06,18 IV Last administered on 11/25/16 06:27; Admin Dose 40 MG; Start 11/23/16 at 18:00 Norepinephrine/ Dextrose (Levophed/D5W) 500 ml @ 0 mls/hr TITRATE IV ; Start 11/24/16 at 08:00 Vancomycin HCl (Vanco Iv Per Pharmacy) PER PHARMACY DOSING NOTE XX ; Start at 08:00 Enoxaparin Sodium (Lovenox) 30 mg BID SC Last administered on 11/25/16 08:07; Admin Dose 30 MG; Start 11/24/16 at 10:00 Nystatin (Nystatin Powder) 1 applic BID TOP Last administered on 11/25/16 10:00 ; Admin Dose 1 APPLIC; Start 11/24/16 at 10:00 Insulin Aspart NOVOLOG *MODERATE* ALGORI... Q4 SC Last administered on 08:06; Admin Dose 4 UNIT; Start 11/24/16 at 13:00 Vancomycin HCl 1.5 gm/Sodium Chloride 250 ml @ 83.333 mls/ hr Q12H IVPB Last administered on 11/25/16 10:00; Admin Dose 83.333 MLS/HR; Start 11/24/16 at 22:00 Phenylephrine HCl/ Dextrose (Mckay-Syneph/D5W) 500 ml @ 0 mls/hr TITRATE IV Last administered on 11/25/16 05:18; Admin Dose 75 MLS/HR; Start 11/24/16 at 11:30 Acetaminophen (Tylenol Liquid) 650 mg Q6H PRN GTB PAIN LEVEL 1-3 OR FEVER; Start 11/24/16 at 20:30 Potassium Chloride (Potassium Chloride Pwd/Soln) 40 meq ONCE ONCE NGT ; Start 11/25/16 at 18:00; Stop 11/25/16 at 18:01 Miscellaneous Information (*Rx Drug Level Order Reminder*) VANCOMYCIN TROUGH LEVEL... ONCE ONCE XX ; Start 11/26/16 at 09:00; Stop 11/26/16 at 09:01 Assessment/Plan Additional Assessment/Plan IMPRESSION: 1. Severe Encephalopathy--possible brain based on examination. The change in clinical examination is concerning for a new neurological event such as ICH. 2. Acute on chronic hypercapnic/hypoxemic resp failure 3. Shock 4. S/P PEA arrest due to #1 5. Demand ischemia 6. Schizoaffective disorder 7. Morbid Obesity RECS: 1. Continued mechanical ventilation--> reduce rate to 14; VT 450 2. Broad-spectrum antibiotics 3. Continue pressors to MAP > 65 4. Follow-up cultures 5. Continue to hold all sedation 6. Obtain stat CT brain 7. Neuro eval 8. Apnea testing 9. Deep vein thrombosis and GI prophylaxis Prognosis grim 35 min cc time DUSTIN ADHIKARI MD Nov 25, 2016 12:43
--- NOTE | 2016-11-25 13:27 | PN ---
Date/Time of Note Date/Time of Note DATE: 11/25/16 TIME: 13:11 Assessment/Plan VTE Prophylaxis VTE Prophylaxis Intervention: SCD's Lines/Catheters IV Catheter Type (from Nrs): Central Line Central line still needed: Yes Urinary Cath still in place: Yes Reason Cath still needed: pres ulcer contaminated by urine Assessment/Plan Assessment/Plan Assessment/Plan 56-year-old female with: 1. Pulseless electrical activity cardiac arrest, likely secondary to acute respiratory failure. Sedation stopped and the patient is unresponsive to ALL stimuli. Case d/w and a STAT CT of the brain is being done. Pupils appear to be fixed and dilated. Also, the patient is NOT breathing over the ventilator. Depending on the results of the CT scan, she may have an apnea test tomorrow. Will d/w with mother (emergency contact) once more information is available. 2-D echocardiogram with preserved LVF 2. Acute respiratory failure, unclear primary etiology of it. She has a history of COPD versus asthma and likely obstructive sleep apnea. Continue mechanical vent support. Appears stable, but unrespnsive as above. Pulmonary following 3. GPC positive blood cx x 2, likely aspiration PNA also. Continue Vanco and Zosyn for now and repeat blood cx tomorrow 11/25. 4. Acute kidney injury in setting of PEA cardiac arrest. Improved renal function. Monitor her urine output and renal function closely. Continue IVF and replete electrolytes. 5. Coffee ground output from the NG tube, possible upper gastrointestinal bleed. Resolved. HB stable. Continue proton pump inhibitors. 6. Schizoaffective disorder. Versed stopped to assess mental status. Resume her psychiatric medications once she is off sedation and awake. 7. Super morbid obesity. Prophylaxis. Lovenox for deep venous thrombosis prophylaxis, Protonix b.i.d. for GI ppx. DISPOSITION: Intubated, in ICU with pulmonary and cardiology following Prognosis guarded. Subjective 24 Hr Interval Summary Free Text/Dictation Not waking up or breathing over the vent despite stopping all sedation. Exam/Review of Systems Vital Signs Vitals Vital Signs Date Time Temp Pulse Resp B/P Pulse Ox O2 Delivery O2 Flow Rate FiO2 11/25/16 10:00 70 19 114/62 94 Mechanical Ventilator 11/25/16 08:00 98.2 11/25/16 05:57 45 Intake and Output 311/24/16 11/25/16 14:59 22:59 06:59 Intake Total 2194.75 ml 2377.5 ml 1385 ml Output Total 365 ml 455 ml 305 ml Balance 1829.75 ml 1922.5 ml 1080 ml Exam Constitutional: non-verbal, other (unresponsive) Eyes: other (dilated, fixed) Neck: supple Respiratory: clear to auscultation Cardiovascular: regular rate and rhythm Gastrointestinal: soft Results Result Diagram: 11/25/16 0400 11/25/16 0400 Results 24 hrs Laboratory Tests Test 11/24/16 13:47 11/24/16 17:46 11/24/16 20:01 11/25/16 00:52 Bedside Glucose 231 H 207 225 H 158 Test 11/25/16 04:00 11/25/16 05:00 11/25/16 05:16 11/25/16 08:03 Anion Gap 11 # Basophils # 0.0 Basophils % 0.1 Blood Urea Nitrogen 15 Calcium Level 8.5 Carbon Dioxide Level 30 Chloride Level 103 Creatinine 0.76 Eosinophils # 0.0 Eosinophils % 0.0 Glucose Level 162 Hematocrit 43.3 Hemoglobin 13.6 Lactic Acid Level 1.7 Lymphocytes # 2.1 Lymphocytes % 15.3 Magnesium Level 2.0 Mean Corpuscular Hemoglobin 31.6 Mean Corpuscular Hemoglobin Concent 31.4 L Mean Corpuscular Volume 100.5 Mean Platelet Volume 10.7 H Monocytes # 0.8 Monocytes % 5.4 Neutrophils # 10.9 H Neutrophils % 78.3 H Nucleated Red Blood Cells # 0.1 H Nucleated Red Blood Cells % 0.9 H Phosphorus Level 2.4 #L Platelet Count 175 # Potassium Level 3.1 L Red Blood Count 4.31 Red Cell Distribution Width 15.9 H Sodium Level 141 White Blood Count 13.9 H Arterial Blood HCO3 24.8 Arterial Blood Base Excess 2.0 Arterial Blood Oxygen Saturation 95.0 Yakov Test ACCEPTAB Arterial Blood Gas Puncture Site Right Radial Arterial Blood Carboxyhemoglobin 0.5 Arterial Blood Date Drawn 11/25/2016 4:40:38 AM Arterial Blood Methemoglobin 0.4 Arterial Blood pCO2 (Temp correct) 33.5 L Arterial Blood pH (Temp corrected) 7.487 H Arterial Blood pO2 (Temp corrected) 74.1 L Blood Gas A-a O2 Differential 208.6 H Blood Gas Actual Respiration Rate 20 Blood Gas Inspiratory Pressure 36.0 Blood Gas Low PEEP Setting 5.0 Blood Gas Modality VENT-AC Blood Gas Notified Time 11/25/2016 5:04:25 AM Blood Gas Notified Whom JMD Blood Gas Respiration Rate 20.0 Blood Gas Specimen Source Blood arterial Blood Gas Temperature 37.0 Blood Gas Tidal Volume 550.0 FiO2 45.0 Oxyhemoglobin Percent 94.1 Total Hemoglobin 15.2 Bedside Glucose 163 208 Medications Medications Current Medications Ondansetron HCl (Zofran Inj) 4 mg Q6H PRN IV NAUSEA AND/OR VOMITING; Start 11/23 at 14:30 Nitroglycerin (Nitroglycerin (Sl Tab) 0.4 Mg) 1 tab Q5M PRN SL CHEST PAIN; Start 11/23/16 at 14:30 Acetaminophen (Tylenol Supp) 650 mg Q4H PRN [place] PAIN LEVEL 1-3 OR FEVER; Start 11/23/16 at 14:30 Morphine Sulfate (morphine) 2 mg Q4H PRN IV PAIN LEVEL 7-10; Start 11/23/16 at 14:30 Docusate Sodium (Colace) 100 mg Q12H PRN PO CONSTIPATION; Start 11/23/16 at 14: 30 Magnesium Hydroxide (Milk Of Mag) 30 ml DAILY PRN PO CONSTIPATION; Start at 14:30 Bisacodyl (Dulcolax Supp) 10 mg DAILY PRN [place] CONSTIPATION; Start 11/23/16 at 14: 30 Eye Lubricant 1 drop 1 drop TID BOTH EYES Last administered on 11/25/16 12:50; Admin Dose 1 DROP; Start 11/23/16 at 21:00 Piperacillin Sod/ Tazobactam Sod 100 ml @ 200 mls/hr Q8 IVPB Last administered on 11/25/16 06:27; Admin Dose 200 MLS/HR; Start 11/23/16 at 16:00 Sodium Chloride (NS) 1,000 ml @ 100 mls/hr Q10H IV Last administered on 19:32; Admin Dose 100 MLS/HR; Start 11/23/16 at 14:30 Miscellaneous Information 1 ea NOTE XX ; Start 11/23/16 at 14:30 Glucose (Glutose) 15 gm Q15M PRN PO DECREASED GLUCOSE; Start 11/23/16 at 14:30 Glucose (Glutose) 22.5 gm Q15M PRN PO DECREASED GLUCOSE; Start 11/23/16 at 14:30 Dextrose (D50w Syringe) 25 ml Q15M PRN IV DECREASED GLUCOSE; Start 11/23/16 at 14:30 Dextrose (D50w Syringe) 50 ml Q15M PRN IV DECREASED GLUCOSE; Start 11/23/16 at 14:30 Glucagon (Glucagen) 1 mg Q15M PRN IM DECREASED GLUCOSE; Start 11/23/16 at 14:30 Glucose (Glutose) 15 gm Q15M PRN BUCCAL DECREASED GLUCOSE; Start 11/23/16 at 14: 30 Aspirin (Halfprin) 81 mg DAILY PO Last administered on 11/25/16 08:01; Admin Dose 81 MG; Start 11/24/16 at 09:00 Pantoprazole 40 mg 40 mg BID@06,18 IV Last administered on 11/25/16 06:27; Admin Dose 40 MG; Start 11/23/16 at 18:00 Norepinephrine/ Dextrose (Levophed/D5W) 500 ml @ 0 mls/hr TITRATE IV ; Start 11/24/16 at 08:00 Vancomycin HCl (Vanco Iv Per Pharmacy) PER PHARMACY DOSING NOTE XX ; Start at 08:00 Enoxaparin Sodium (Lovenox) 30 mg BID SC Last administered on 11/25/16 08:07; Admin Dose 30 MG; Start 11/24/16 at 10:00 Nystatin (Nystatin Powder) 1 applic BID TOP Last administered on 11/25/16 10:00 ; Admin Dose 1 APPLIC; Start 11/24/16 at 10:00 Insulin Aspart NOVOLOG *MODERATE* ALGORI... Q4 SC Last administered on 08:06; Admin Dose 4 UNIT; Start 11/24/16 at 13:00 Vancomycin HCl 1.5 gm/Sodium Chloride 250 ml @ 83.333 mls/ hr Q12H IVPB Last administered on 11/25/16 10:00; Admin Dose 83.333 MLS/HR; Start 11/24/16 at 22:00 Phenylephrine HCl/ Dextrose (Mckay-Syneph/D5W) 500 ml @ 0 mls/hr TITRATE IV Last administered on 11/25/16 12:52; Admin Dose 75 MLS/HR; Start 11/24/16 at 11:30 Acetaminophen (Tylenol Liquid) 650 mg Q6H PRN GTB PAIN LEVEL 1-3 OR FEVER; Start 11/24/16 at 20:30 Potassium Chloride (Potassium Chloride Pwd/Soln) 40 meq ONCE ONCE NGT ; Start 11/25/16 at 18:00; Stop 11/25/16 at 18:01 Miscellaneous Information (*Rx Drug Level Order Reminder*) VANCOMYCIN TROUGH LEVEL... ONCE ONCE XX ; Start 11/26/16 at 09:00; Stop 11/26/16 at 09:01 ANEESH ROACH MD Nov 25, 2016 13:26
[2016-11-25] MEDS ORDERED: ATROPINE 1 MG/10 ML SYRINGE ONE (14:28)
--- NOTE | 2016-11-25 15:01 | RADRPT ---
PROCEDURE: CT head without Contrast CLINICAL INDICATION: Acute change of mental status TECHNIQUE: Transaxial images were made through the head on a multi-slice scanner without intraveno us contrast. Coronal and sagittal images were subsequently reformatted. One or more of the following dose reduction techniques were used: - Automated exposure control. - Adjustment of the mA and/or kV according to patient size. - Use of iterative reconstruction technique. Radiation dose: CTDIvol = 37.80 mGy; DLP = 634.23 mGy-cm. COMPARISON: 11/23/2016 FINDINGS: The calvarium appears intact. Inflammatory changes are again seen within the ethmoid sinuses bilate rally and to a lesser extent within the maxillary sinuses. Fluid is seen within several mastoid air cells. There is been interval development of hypodensity and expansion of the brain in the posterior fossa obliterating the fourth ventricle. The lateral and third ventricles at the mildly dilated. There i s no significant midline shift. There is effacement of the fissures and sulci compatible with diffu se cerebral edema. No intracranial bleed or extra-axial fluid collection is identified. IMPRESSION: 1. There is a diffuse edema of the brain parenchyma most extensive in the posterior fossa with effa cement of the fourth ventricle. This raises the suspicion of edema from acute ischemia and was not e vident on 11/23/2016. 2. Interval development of mild hydrocephalus involving the lateral and third ventricles with diffu se cerebral edema effacing the fissures and sulci. 3. Persistent inflammatory changes involving the ethmoid maxillary sinuses. Mild mastoiditis is als o noted bilaterally. Findings of development of diffuse cerebral edema most extensive in the posterior fossa with the fou rth ventricle completely effaced and with mild hydrocephalus of the lateral and third ventricles wer e telephoned by Gallo De La Torre MD to Dr. Renae on 12/26/2016 at 1454 hours. Physician Levi Date Time Electronically viewed and signed by Physician Levi on 11/25/2016 15:01 /
--- NOTE | 2016-11-25 19:57 | QN ---
Documentation Comment I had a lengthy cnversation with the patient's sister and mother (Kristen Ann) and summarized Fransisca Valdes's course throughout her stay including the result of her most recent CT scan. I explained to them that there is no chance of meaningful recovery and they elected to change Fransisca's code status to DNR. They agree to comfort measures if the developed pain or discomfort. Matthew Hernandez RN (bedside RN) also participated in the phone call. ANEESH ROACH MD Nov 25, 2016 19:57
[2016-11-26] VITALS (77 sets, daily range): BP systolic 55–136; BP diastolic 28–83; PULSE 43–55; RESP 13–20
[2016-11-26] MEDS: PHENYLephrine 40 MG in DEXTROSE 5% 496 ML IV SCH ×5 (00:51→13:52)
[2016-11-26] MEDS: INSULIN ASPART [NOVOLOG] 3 ML PEN SC SCH ×2 (01:03→05:03)
[2016-11-26] MEDS: ALBUTEROL HFA 8 GM INHALER INH SCH ×3 (01:53→09:13)
[2016-11-26] MEDS: IPRATROPIUM (HFA) 12.9 GM INHALER INH SCH ×3 (01:53→09:13)
[2016-11-26 04:54] LABS: ADD SCAN DIFF NO
[2016-11-26 05:08] LABS: BASOPHILS % 0.3 % (0.0-2.0); EOSINOPHILS # 0.1 10^3/ul (0.0-0.5); EOSINOPHILS % 0.4 % (0.0-7.0); HEMATOCRIT 44.4 % (37.0-47.0); HEMOGLOBIN 13.7 g/dl (12.0-16.0); LYMPHOCYTES # 2.8 10^3/ul (0.8-2.9); LYMPHOCYTES % 23.6 % (15.0-51.0); MEAN CORPUSCULAR HEMOGLOBIN 32.2 pg (29.0-33.0); MEAN CORPUSCULAR HGB CONC 30.9 g/dl (32.0-37.0); MEAN CORPUSCULAR VOLUME 104.2 fl (82.0-101.0); MEAN PLATELET VOLUME 10.9 fl (7.4-10.4); MONOCYTE # 0.6 10^3/ul (0.3-0.9); MONOCYTES % 5.1 % (0.0-11.0); NEUTROPHIL # 8.4 10^3/ul (1.6-7.5); NEUTROPHILS % 69.8 % (39.0-77.0); NUCLEATED RED BLOOD CELLS% 0.3 /100WBC (0.0-0.0); PLATELET COUNT 158 10^3/UL (140-415); RED BLOOD COUNT 4.26 10^6/ul (4.20-5.40); RED CELL DISTRIBUTION WIDTH 16.5 % (11.5-14.5)
[2016-11-26] MEDS: PIPER-TAZO 3.375 GM IV (PMX) 100 ML IVPB SCH (05:11)
[2016-11-26] MEDS: PANTOPRAZOLE 40 MG INJ IV SCH (05:11)
[2016-11-26 05:21] LABS: POTASSIUM 3.6 mmol/L (3.5-5.1)
[2016-11-26 05:24] LABS: CREATININE 0.71 mg/dl (0.44-1.00)
[2016-11-26 05:25] LABS: CALCIUM 9.2 mg/dl (8.4-10.2)
--- NOTE | 2016-11-26 08:14 | CONS ---
Date/Time of Note Date/Time of Note DATE: 11/26/16 TIME: 08:09 Assessment/Plan Assessment/Plan Additional Assessment/Plan Ventilator settings; AC of 14, tidal volume 450, PEEP of 7, 40% FiO2. Assessment and recommendations; 1. Patient admitted with cardiac arrest leading to anoxic encephalopathy and cerebral edema. 2. Underlying morbid obesity. 3. History of cardiac arrhythmia. 4. Likely interstitial lung disease. 5. History of schizoaffective disorder. 6. Mild thrombocytopenia. 7. Hypernatremia. Continue current supportive care. Free water via NG tube 30 mL every 6 hours for correction of hypernatremia. Apparently the family has decided for comfort care measures and they may opt for terminal extubation. Prognosis is dismal. Consultation Date/Type/Reason Admit Date/Time Nov 23, 2016 at 14:03 Initial Consult Date 11/24/16 Type of Consultation: Pulm Referring Provider: JERRI MORENO 24 HR Interval Summary Free Text/Dictation Patient's condition remains critical. Requiring full ventilator support. Patient also has been hypotensive off and on requiring phenylephrine drip. General examination; middle-aged woman, appears quite obese, or intubated unresponsive. Exam/Review of Systems Vital Signs Vitals Vital Signs Date Time Temp Pulse Resp B/P Pulse Ox O2 Delivery O2 Flow Rate FiO2 11/26/16 07:48 45 14 99 40 11/26/16 06:30 90/70 11/26/16 06:00 Mechanical Ventilator 11/26/16 04:00 97.0 Intake and Output 11/25/16 11/25/16 11/26/16 15:00 23:00 07:00 Intake Total 1093.32 ml 1411.25 ml 1157.50 ml Output Total 1615 ml 3505 ml 2575 ml Balance -521.68 ml -2093.75 ml -1417.50 ml Exam HEENT exam; supple neck, no JVD. No lymphadenopathy. Midline trachea. Or intubated. Fair dentition. Pupils are dilated and nonreactive to light. Doll' s eye movements are absent. No neck masses. No thyromegaly. No lymphadenopathy. Next Chest examination; diminished but clear breath sounds bilaterally. S1-S2 audible, no murmurs. Regular rhythm. Abdomen examination; protuberant, bowel sounds audible. No organomegaly. Extremity examination; trace lower extremity edema. Pulses 1+ bilaterally. WEB CONTENT EXECUTIVE examination; patient is unresponsive. Results Result Diagram: 11/26/16 0400 11/26/16 0400 Results 24 hrs Laboratory Tests Test 11/25/16 13:39 11/25/16 16:48 11/25/16 20:01 11/26/16 00:59 Bedside Glucose 175 212 269 H 189 Test 11/26/16 04:00 11/26/16 04:47 Anion Gap 13 Basophils # 0.0 Basophils % 0.3 Blood Urea Nitrogen 13 Calcium Level 9.2 Carbon Dioxide Level 31 Chloride Level 114 H Creatinine 0.71 Eosinophils # 0.1 Eosinophils % 0.4 Glucose Level 220 Hematocrit 44.4 Hemoglobin 13.7 Lymphocytes # 2.8 Lymphocytes % 23.6 Mean Corpuscular Hemoglobin 32.2 Mean Corpuscular Hemoglobin Concent 30.9 L Mean Corpuscular Volume 104.2 H Mean Platelet Volume 10.9 H Monocytes # 0.6 Monocytes % 5.1 Neutrophils # 8.4 H Neutrophils % 69.8 Nucleated Red Blood Cells # 0.0 Nucleated Red Blood Cells % 0.3 H Platelet Count 158 Potassium Level 3.6 Red Blood Count 4.26 Red Cell Distribution Width 16.5 H Sodium Level 154 H White Blood Count 12.0 H Bedside Glucose 197 Medications Medications Current Medications Ondansetron HCl (Zofran Inj) 4 mg Q6H PRN IV NAUSEA AND/OR VOMITING; Start 11/23 at 14:30 Nitroglycerin (Nitroglycerin (Sl Tab) 0.4 Mg) 1 tab Q5M PRN SL CHEST PAIN; Start 11/23/16 at 14:30 Acetaminophen (Tylenol Supp) 650 mg Q4H PRN DE PAIN LEVEL 1-3 OR FEVER; Start 11/23/16 at 14:30 Morphine Sulfate (morphine) 2 mg Q4H PRN IV PAIN LEVEL 7-10; Start 11/23/16 at 14:30 Docusate Sodium (Colace) 100 mg Q12H PRN PO CONSTIPATION; Start 11/23/16 at 14: 30 Magnesium Hydroxide (Milk Of Mag) 30 ml DAILY PRN PO CONSTIPATION; Start at 14:30 Bisacodyl (Dulcolax Supp) 10 mg DAILY PRN DE CONSTIPATION; Start 11/23/16 at 14: 30 Eye Lubricant 1 drop 1 drop TID BOTH EYES Last administered on 11/25/16 20:11; Admin Dose 1 DROP; Start 11/23/16 at 21:00 Piperacillin Sod/ Tazobactam Sod (Zosyn 3.375gm/ 100 ml (Pmx)) 100 ml @ 200 mls /hr Q8 IVPB Last administered on 11/26/16 05:11; Admin Dose 200 MLS/HR; Start 11/23/16 at 16:00 Miscellaneous Information 1 ea NOTE XX ; Start 11/23/16 at 14:30 Glucose (Glutose) 15 gm Q15M PRN PO DECREASED GLUCOSE; Start 11/23/16 at 14:30 Glucose (Glutose) 22.5 gm Q15M PRN PO DECREASED GLUCOSE; Start 11/23/16 at 14:30 Dextrose (D50w Syringe) 25 ml Q15M PRN IV DECREASED GLUCOSE; Start 11/23/16 at 14:30 Dextrose (D50w Syringe) 50 ml Q15M PRN IV DECREASED GLUCOSE; Start 11/23/16 at 14:30 Glucagon (Glucagen) 1 mg Q15M PRN IM DECREASED GLUCOSE; Start 11/23/16 at 14:30 Glucose (Glutose) 15 gm Q15M PRN BUCCAL DECREASED GLUCOSE; Start 11/23/16 at 14: 30 Aspirin (Halfprin) 81 mg DAILY PO Last administered on 11/25/16 08:01; Admin Dose 81 MG; Start 11/24/16 at 09:00 Pantoprazole 40 mg 40 mg BID@06,18 IV Last administered on 11/26/16 05:11; Admin Dose 40 MG; Start 11/23/16 at 18:00 Norepinephrine/ Dextrose (Levophed/D5W) 500 ml @ 0 mls/hr TITRATE IV ; Start 11/24/16 at 08:00 Vancomycin HCl (Vanco Iv Per Pharmacy) PER PHARMACY DOSING NOTE XX ; Start at 08:00 Enoxaparin Sodium (Lovenox) 30 mg BID SC Last administered on 11/25/16 20:09; Admin Dose 30 MG; Start 11/24/16 at 10:00 Nystatin (Nystatin Powder) 1 applic BID TOP Last administered on 11/25/16 20:11 ; Admin Dose 1 APPLIC; Start 11/24/16 at 10:00 Insulin Aspart NOVOLOG *MODERATE* ALGORI... Q4 SC Last administered on 05:03; Admin Dose 4 UNIT; Start 11/24/16 at 13:00 Vancomycin HCl 1.5 gm/Sodium Chloride 250 ml @ 83.333 mls/ hr Q12H IVPB Last administered on 11/25/16 22:05; Admin Dose 83.333 MLS/HR; Start 11/24/16 at 22:00 Phenylephrine HCl/ Dextrose (Mckay-Syneph/D5W) 500 ml @ 0 mls/hr TITRATE IV Last administered on 11/26/16 04:02; Admin Dose 131.25 MLS/HR; Start 11/24/16 at 11:30 Acetaminophen (Tylenol Liquid) 650 mg Q6H PRN GTB PAIN LEVEL 1-3 OR FEVER; Start 11/24/16 at 20:30 Miscellaneous Information (*Rx Drug Level Order Reminder*) VANCOMYCIN TROUGH LEVEL... ONCE ONCE XX ; Start 11/26/16 at 09:00; Stop 11/26/16 at 09:01 ALENA BARTHOLOMEW 6, 2017 08:14
[2016-11-26] MEDS ORDERED: morphine (DRIP) 100 MG/100 ML 100 ML IV SCH (10:00)
--- NOTE | 2016-11-26 10:24 | PN ---
Date/Time of Note Date/Time of Note DATE: 11/26/16 TIME: 10:09 Assessment/Plan VTE Prophylaxis VTE Prophylaxis Intervention: LMWH Lines/Catheters IV Catheter Type (from Nrsg): Central Line Central line still needed: Yes (IV access ) Urinary Cath still in place: Yes Reason Cath still needed: terminal illness/intractable pain Assessment/Plan Assessment/Plan 56-year-old female with: 1. Vasogenic edema and herniation: patient with pupils fixed and dilated, no gag reflex, no candidate for organ donation per [facility] DNR and comfort measures per Family Terminal extubation when family present if patient does not as away before that. 2. Pulseless electrical activity cardiac arrest, likely secondary to acute respiratory failure. 2-D echocardiogram with preserved LVF Appreciate Cardiology eval and recommendations 3. Acute respiratory failure, unclear primary etiology of it. She has a history of COPD versus asthma and likely obstructive sleep apnea. Appreciate Pulmonary recommendations Continue mechanical vent support for now with plan for terminal extubation later if needed. Comfort measure/withdrawal of care 4. GPC positive blood cx x 2, likely aspiration PNA also. Comfort measures, withdrawal of care. 5. Acute kidney injury in setting of PEA cardiac arrest. Comfort measures. 6. Schizoaffective disorder. 7. Super morbid obesity. Prophylaxis: Comfort measures DISPOSITION: DNR and comfort measures per Family, terminal extubation when family present if patient does not as away before that. Prognosis dismal . Subjective 24 Hr Interval Summary Free Text/Dictation Patient unresponsive and CT head yesterday with vasogenic edema and and possible underlying CVA Patient seems to be herniating already yesterday with fixed and dilated pupils DNR and comfort measures per Family Decline by [facility] Morphine gtt and terminal extubation today when family present Exam/Review of Systems Vital Signs Vitals Vital Signs Date Time Temp Pulse Resp B/P Pulse Ox O2 Delivery O2 Flow Rate FiO2 11/26/16 09:45 47 14 96/67 97 Mechanical Ventilator 11/26/16 09:14 40 11/26/16 04:00 97.0 Intake and Output 11/25/16 11/25/16 11/26/16 15:00 23:00 07:00 Intake Total 1093.32 ml 1411.25 ml 1157.50 ml Output Total 1615 ml 3505 ml 2575 ml Balance -521.68 ml -2093.75 ml -1417.50 ml Exam Constitutional: obese, other Eyes: other (pupils fixed and dilated ) ENMT: other (no gag ) Respiratory: clear to auscultation, normal air movement Cardiovascular: other (bradycardic ), regular rate and rhythm Gastrointestinal: non-tender, soft Musculoskeletal: nl extremities to inspection Neurological: other (no gag and pupils fixed and dilated ), unresponsive Results Result Diagram: 11/26/16 0400 11/26/16 0400 Results 24 hrs Laboratory Tests Test 11/25/16 13:39 11/25/16 16:48 11/25/16 20:01 11/26/16 00:59 Bedside Glucose 175 212 269 H 189 Test 11/26/16 04:00 11/26/16 04:47 Anion Gap 13 Basophils # 0.0 Basophils % 0.3 Blood Urea Nitrogen 13 Calcium Level 9.2 Carbon Dioxide Level 31 Chloride Level 114 H Creatinine 0.71 Eosinophils # 0.1 Eosinophils % 0.4 Glucose Level 220 Hematocrit 44.4 Hemoglobin 13.7 Lymphocytes # 2.8 Lymphocytes % 23.6 Mean Corpuscular Hemoglobin 32.2 Mean Corpuscular Hemoglobin Concent 30.9 L Mean Corpuscular Volume 104.2 H Mean Platelet Volume 10.9 H Monocytes # 0.6 Monocytes % 5.1 Neutrophils # 8.4 H Neutrophils % 69.8 Nucleated Red Blood Cells # 0.0 Nucleated Red Blood Cells % 0.3 H Platelet Count 158 Potassium Level 3.6 Red Blood Count 4.26 Red Cell Distribution Width 16.5 H Sodium Level 154 H White Blood Count 12.0 H Bedside Glucose 197 Medications Medications Current Medications Phenylephrine HCl 40 mg/Dextrose 500 ml @ 0 mls/hr TITRATE IV Last administered on 11/26/16t 10:03; Admin Dose 150 MLS/HR; Start 11/24/16 at 11:30 Morphine Sulfate/ Dextrose (morphine) 100 ml @ 1 mls/hr TITRATE IV ; Start at 10:00 JERRI MORENO Nov 26, 2016 10:24
--- NOTE | 2016-11-26 19:15 | EN ---
Date/Time of Note Date/Time of Note DATE: 11/26/16 TIME: 19:14 Event Note Medicine Medicine Event Note Call to pronounce patient . Exam: Constitutional: other (unresponsive to deep sternal rub) Eyes: other (pupils fixed and dilated after at least 45s) Neck: other (no carotid pulses palpated or ascultated after at least 45s) Respiratory: other (no respiratory effort noted or ascultated after at least 45s) Cardiovascular: other (no cardiac pulses ascultated after at least 45s) Extremities: other (no femoral pulses palpated after at least 45s ) Neurological: unresponsive Assessment/Plan Patient Pronounced at 1819. summary per primary attending. DAVID BECKER Nov 26, 2016 19:15
--- NOTE | 2016-12-13 20:35 | DES ---
DATE OF ADMISSION: 11/23/2016 DATE OF : 11/26/2016 ADMITTING PHYSICIAN: Dr. Davila PHYSICIAN AT THE TIME OF : Dr. Davila CONSULTANTS ON THIS ADMISSION: 1. Dr. Hernández from cardiology 2. Dr. Saldivar from pulmonary critical care CHIEF COMPLAINT ON ADMISSION: The patient was found down in cardiac arrest. BRIEF HISTORY OF PRESENTING ILLNESS: This is a 56-year-old female with history of schizoaffective d isorder, asthma, and possibly obstructive sleep apnea, super morbid obesity who was brought into the emergency department by EMS from a local board and care after she was found down apparently in PEA arrest. CPR was initiated by EMS, continued in the emergency department. Eventually, the patient w as brought back and stabilized. She was started on IV antibiotics and admitted to the intensive car e unit. HOSPITAL COURSE: Upon admission, the patient was found to be hyponatremic with a sodium of 121. La ctate was up to 10. This is after cardiac arrest and a troponin of 0.259. Both pulmonary and cardi ology were consulted at that time. The patient was intubated by the ER physician. She was ruled ou t for acute coronary syndrome, but maintained on the vent. She remained stable for a couple of days . Her blood cultures came back positive with gram-positive cocci. She had likely aspiration pneumo sallie at that time also and maintained on antibiotics. By hospital day #2, the patient was found to h ave pupils fixed and dilated and no gag while rounding. A stat CAT scan was done. She was found to have vasogenic edema. Her family was finally found, after multiple reports, we found out that her family actually lived in [facility] apparently. They were notified of the patient's very p oor clinical status and even poor dismal prognosis. They are aware, and they did choose to have a D NR and likely comfort care with terminal extubation once they have driven down to [facility]. The patient's family did arrive on 11/26/2016 and once they said their goodbyes, the patient was terminally extubated, and she did pass away within a few minutes. The patient was pronounced at 18 19 on 11/26/2016. FINAL DIAGNOSES: 1. Vasogenic edema and brain herniation. 2. Status post cardiac arrest and pulseless electrical activity cardiac arrest. 3. Acute respiratory failure. 4. Aspiration pneumonia. 5. Positive blood cultures with gram-positive cocci. 6. Acute kidney injury. 7. Schizoaffective disorder. 8. Super morbid obesity. Dictated By: JERRI MANCILLA/ISMAEL Conf#: [id number] DID#: [id number]
== END 2016-11-26 18:19 | disposition expired | DRG 871 ==
LOC: E/R 12:06 → ICU 14:03
PROVIDERS: ADMIT Internal Medicine; ATTEND Internal Medicine
PROC: 0BH17EZ Insertion of Endotracheal Airway into Trachea, Via Natural or Artificial Opening (ICD-10-PCS; principal; 2016-11-23)
PROC: 5A1945Z Respiratory Ventilation, 24-96 Consecutive Hours (ICD-10-PCS; 2016-11-23)
DX: A41.9 Sepsis, unspecified organism (principal); J96.01 Acute respiratory failure with hypoxia; G93.6 Cerebral edema; G93.5 Compression of brain; R65.21 Severe sepsis with septic shock; J69.0 Pneumonitis due to inhalation of food and vomit; Z68.43 Body mass index [BMI] 50.0-59.9, adult; E87.2 Acidosis; N17.9 Acute kidney failure, unspecified; E87.0 Hyperosmolality and hypernatremia; E87.1 Hypo-osmolality and hyponatremia; F10.10 Alcohol abuse, uncomplicated; F25.9 Schizoaffective disorder, unspecified; G47.33 Obstructive sleep apnea (adult) (pediatric); E66.01 Morbid (severe) obesity due to excess calories; Z66 Do not resuscitate
CPT/HCPCS: 31500; 36415; 36600; 70450; 71010; 76937; 80048; 80053; 80306; 80307; 81001; 81003; 82150; 82550; 82553; 82803; 82962; 83605; 83690; 83735; 84100; 84439; 84443; 84484; 85025; 85378; 85610; 85730; 87040; 87075; 87081; 87086; 93005; 93306; 94002; 94003; 94640; 94770; 96374; 96375; C9113; J0461; J0692; J1650; J1815; J2270; J2370; J2543; J3370; J3411; J3475; J3480; J7030; J7040; J7050; J7060